=== PATIENT | female | born 1940 | race Caucasian/White ===

== ENCOUNTER 2021-06-14 14:58 | Outpatient (REF) | payer MEDICARE, SELFPAY ==
[2021-06-14 16:25] LABS: Hematocrit 34.6 % (37.0-47.0); Hemoglobin 11.7 g/dl (12.0-16.0); Mean Corpuscular HGB Conc 33.8 g/dl (31.0-35.0); Mean Corpuscular Hemoglobin 32.2 pg (27.0-33.0); Mean Corpuscular Volume 95.3 fL (80.0-98.0); Platelet Count 248 X10*3/uL (160-400); Red Blood Count 3.63 X10*6/uL (4.20-5.50); Red Cell Distribution Width 13.2 % (11.0-16.0); White Blood Count 12.2 X10*3/uL (4.8-10.8)
[2021-06-14 17:04] LABS: Alanine Aminotransferase 18 U/L (0-31); Alkaline Phosphatase 89 U/L (39-117); Anion Gap 12 (12-20); Aspartate Amino Transferase 25 U/L (5-31); Bilirubin Total 0.9 mg/dL (0.0-1.0); Blood Urea Nitrogen 29 mg/dL (9-16); Calcium 9.7 mg/dL (8.4-10.2); Carbon Dioxide 30 mmol/L (22-29); Chloride 105 mmol/L (96-108); Estimated Glomerular Filt Rate > 60; Glucose Random 99 mg/dL (60-115); Potassium 4.8 mmol/L (3.3-5.1); Sodium 142 mmol/L (135-145); Total Protein 7.3 g/dL (6.5-8.0)
[2021-06-14 17:07] LABS: B Type Natriuretic Peptide 210 pg/mL (<100)
[2021-06-14 17:30] LABS: TSH reflex Free T4 1.68 uIU/mL (0.32-4.0)
== END 2021-06-14 14:59 | disposition home or self-care (01) ==
LOC: HO.HMGCLDS 14:58
PROVIDERS: PCP Internal Medicine; Visit Provider Internal Medicine
DX: I10 Essential (primary) hypertension (principal); E78.5 Hyperlipidemia, unspecified; L85.3 Xerosis cutis
CPT/HCPCS: 36415; 80053; 83880; 84443; 85027

== ENCOUNTER 2023-03-23 14:42 | Outpatient (AMB) | payer MEDICARE, SELFPAY ==
--- NOTE | 2023-03-23 15:48 | MHC.OFFWIV ---
Intake Vital Signs 03/23/23 15:59 BP 142/80 H Blood Pressure Location Rt brachial Position Sitting Pulse 64 Pulse Source Pulse Oximeter Pulse Oximetry (%) 98 Oxygen Delivery Method Room Air Intake Visit Reasons: EST/ possible infection/eye issues Intake Note: Patient here for a couple issues, she has been seeing double and not clear, they get watery often, cant see when reading or writing and has been having difficulty walking because of it. she would also like to talk about ringing in ears and dental issues/crowns cracked. Patient Tobacco Use Status: Never used Tobacco Allergies Penicillins Allergy (Verified 03/24/23 05:03) Swelling Sulfa (Sulfonamide Antibiotics) Allergy (Verified 03/24/23 05:03) Swelling Medication List - Last Reconciled 03/24/23 by Austin Bassett MD aspirin 81 mg PO DAILY enalapril maleate 20 mg PO BID hydrochlorothiazide 25 mg PO DAILY hydrocortisone 2.5% 1 appl topical BID PRN metoprolol tartrate 25 mg PO TID HPI EST/ possible infection/eye issues HPI Details 82-year-old female presents to the office for a sick visit. She is walking with the assistance of a cane. Her niece brought her to the office but patient does not want her in the exam room. Patient does not recall when she saw her primary care physician last. She is not able to tell me the name of medication she is taking. Patient complains of poor vision, poor hearing. Then she starts talking about parasitic infections at her home. She is complaining about aches and pains in her body. Unable to tell me the exact nature of her visit today. [facility] Medical History (Updated 03/24/23 @ 05:10 by Austin Bassett MD) Dry skin HTN (hypertension) Hyperlipidemia Pacemaker Paroxysmal atrial fibrillation Solar lentiginosis Social History Patient Tobacco Use Status: Never used Tobacco Physical Exam Vital Signs: Last Vital Signs Pulse 64 03/23/23 15:59 BP 142/80 H 03/23/23 15:59 Pulse Ox 98 03/23/23 15:59 Oxygen Delivery Method Room Air 03/23/23 15:59 Const Other: Patient appears confused. She is alert answering some questions appropriately. Very sarcastic and not very forthright with her history. Patient sat across the room in a chair. I did not do a physical exam. Assessment & Plan Assessment & Plan (1) Poor vision: Code(s): H54.7 - Unspecified visual loss Plan: The interview and visit did not go well. A wanted the patient's niece to be in the room for me to get an understanding of what her medical issue was. The patient abruptly stood up and said she was done with me. She wanted to know her vital exam and her vision status. On a sticky note, I gave her her today's blood pressure, other white low details and the vision exam result. Patient was informed that her vision is floor. She walked out of the room independently and without assistance. Coding Level of Care Code Est Pt Level 3 (39945) Diagnoses Poor vision H54.7 CPT Codes Vision Screening - Vision Screenin - Vision Screening ([id number]) Vision Screening Right Eye: 0 Left Eye: 0 Bilateral: 20/70 Comments: patient stated while covering one eye at a time it would be blurred and while during vision screening with both eyes she was able to see 20/70 14210 - Vision Screening
[2023-03-23 15:59] VITALS: BP 142/80; PULSE 64; O2SAT 98
== END 2023-03-23 16:23 | disposition home or self-care (01) ==
PROVIDERS: PCP Internal Medicine; Visit Provider Internal Medicine
DX: H54.7 Unspecified visual loss (principal)
CPT/HCPCS: 99173; 99213

== ENCOUNTER 2023-05-01 12:26 | Outpatient (AMB) | payer MEDICARE, SELFPAY ==
--- NOTE | 2023-05-01 12:39 | A.OFFPC_ITS ---
Vital Signs 05/01/23 12:40 Height 5 ft 3.5 in Weight 126 lb BMI 22.0 BP 142/76 H Blood Pressure Location Lt brachial Position Sitting Pulse 60 Pulse Source Pulse Oximeter Pulse Oximetry (%) 96 Oxygen Delivery Method Room Air Intake Visit Reasons: headaches, nausea Intake Note: Pt is here today for a follow up visit. Allergies Penicillins Allergy (Verified 05/01/23 12:47) Swelling Sulfa (Sulfonamide Antibiotics) Allergy (Verified 05/01/23 12:47) Swelling Medication List - Last Reconciled 05/01/23 by Eleanor Lin MD aspirin 81 mg PO DAILY enalapril maleate 20 mg PO BID hydrochlorothiazide 25 mg PO DAILY hydrocortisone 2.5% 1 appl topical BID PRN metoprolol tartrate 25 mg PO TID Tobacco use date assessed: 05/01/23 Fall risk assessment: No Falls in past year Last assessed Fall Risk: 05/01/23 Dental Screening Dental Screen Date: 05/01/23 Did you have a dental visit in the last 12 months?: Yes Did you have a dental problem in the last 6 months where you did not have access to dental care?: No Was dental information given to patient?: Patient has dentist HPI headaches, nausea HPI Details Pt presents for follow-up of ER visit to [facility] for noncardiac chest pain. Patient lives alone and complains of difficulty walking and poor balance for a few months and would like to start PT. HTN and paroxysmal A fib, are stable on meds. Pt f/u with cardiology and [facility]. [facility] Medical History (Updated 05/01/23 @ 13:28 by Eleanor Lin MD) Paroxysmal atrial fibrillation Solar lentiginosis Dry skin Hyperlipidemia HTN (hypertension) Pacemaker Family History Father No problems noted. 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 1. Little interest or pleasure in doing things: not at all 2. Feeling down, depressed, or hopeless: not at all 3. Trouble falling or staying asleep, or sleeping too much: not at all 4. Feeling tired or having little energy: not at all 5. Poor appetite or overeating: not at all 6. Feeling bad about yourself - or that you are a failure or have let yourself or your family down: not at all 7. Trouble concentrating on things, such as reading the newspaper or watching television: not at all 8. Moving or speaking so slowly that other people could have noticed. Or the opposite - being so fidgety or restless that you have been moving around a lot more than usual: not at all 9. Thoughts that you would be better off or of hurting yourself in some way: not at all Total score: 0 Depression Screening Interpretation: Negative Source: Developed by Drs. Oscar Chen, Catrachita Villasenor, Nathanael Capellan and colleagues, with an educational radha from [employer]. Thrive Questionnaire Date Thrive assessed: 05/01/23 I am a: Patient What is your living situation today?: I have a steady place to live Within the past 12 months, did the food you bought not last and you didn't have the money to get more?: Never true Within the past 12 months, did you worry whether your food would run out before you got money to buy more?: Never true Do you have trouble paying for medicines?: No Do you have trouble getting transportation to medical appointments?: No Do you have trouble paying your heating and electricity bill?: No Do you have trouble taking care of your child, family member or friend?: No Do you have trouble with day-to-day activities such as bathing, preparing meals, shopping, managing finances, etc.?: No Are you currently unemployed and looking for a job?: No Are you interested in more education?: No Please select the resources that you would like help with: None Currently or been in a relationship where the following occur: no concerns reported AUDIT C Alcohol Use Questionnaire (AUDIT-C) 1. How often do you have a drink containing alcohol?: Never 3. How often do you have six or more drinks on one occasion?: Never Total Score: 0 ISHA-7 AMB Questionnaire ISHA-7 Date ISHA - 7 assessed: 05/01/23 Feeling nervous, anxious, or on edge: 0 = Not at all Not being able to stop or control worryin = Not at all Worrying too much about different things: 0 = Not at all Trouble relaxin = Not at all Being so restless that it is hard to sit still: 0 = Not at all Becoming easily annoyed or irritable: 0 = Not at all Feeling afraid as if something awful might happen: 0 = Not at all Total ISHA-7 score (0-4 normal; 5-9 mild; 10-14 moderate; 15-21 severe): 0 Source: Developed by Drs. Oscar Chen, Catrachita Villasenor, Nathanael Capellan and colleagues, with an educational radha from [employer]. Review of Systems Const All systems reviewed & are unremarkable except as noted in HPI and below Reports no additional complaints Eyes Reports no additional complaints ENT Reports no additional complaints Card Reports no additional complaints Resp Reports no additional complaints GI Reports no additional complaints Reports no additional complaints Physical exam (Primary Care) Vital Signs: Last Vital Signs Pulse 60 05/01/23 12:40 BP 142/76 H 05/01/23 12:40 Pulse Ox 96 05/01/23 12:40 Oxygen Delivery Method Room Air 05/01/23 12:40 BMI result Body Mass Index 22.0 Tobacco/Smoking Status: Tobacco use Status Tobacco use date assessed 05/01/23 05/01/23 12:54 Patient Tobacco Use Status Never used Tobacco 05/01/23 12:54 e-Cigarette/Vaping Use Never Used 05/01/23 12:54 PHQ-9: PHQ-9 Score PHQ-9: Total score 0 05/01/23 12:54 Depression Screening Interpretation: Negative Thrive Assessment: Date of Thrive Assessment Date Thrive assessed 05/01/23 05/01/23 12:54 Currently or been in a relationship where the following occur: no concerns reported Const General: no acute distress Orientation/consciousness: patient oriented x3 HENMT Face and sinus: Yes normal facial exam Mouth: Normal oral and palatal mucosa present Neck Neck: Yes supple Resp Effort & Inspection: normal respiratory effort Auscultation: clear to auscultation bilaterally Cardio Rhythm: regular rhythm Heart sounds: S1 normal heart sound present and S2 normal heart sound present GI Inspection: Yes normal to inspection Palpation (GI): Soft to palpation Neuro General: patient oriented x3 Cranial nerves: Yes CN's II-XII intact bilaterally Gait exam (Neuro): Staggering gait present Motor exam (neuro): 5/5 motor strength present throughout and Pronator motor function not present Romberg Test: Negative Assessment and Plan Assessment & Plan (1) Balance problem: Code(s): R26.89 - Other abnormalities of gait and mobility Plan: Referred to physical therapy (2) HTN (hypertension): Code(s): I10 - Essential (primary) hypertension Plan: Continue current medications (3) Paroxysmal atrial fibrillation: Comment: f/u Dr. Brody Naranjo, SSS, s/p pacemaker Code(s): I48.0 - Paroxysmal atrial fibrillation Plan: Follow-up with Cardiology Orders: Orders PT Evaluation and Treatment Today R26.89 - Other abnormalities of gait and mobility Coding Level of Care Code Est Pt Level 4 (56862) Diagnoses Balance problem R26.89 HTN (hypertension) I10 Paroxysmal atrial fibrillation I48.0
[2023-05-01 12:40] VITALS: BP 142/76; PULSE 60; O2SAT 96; BMI 22.0
== END 2023-05-01 13:29 | disposition home or self-care (01) ==
PROVIDERS: PCP Internal Medicine; Visit Provider Internal Medicine
DX: R26.89 Other abnormalities of gait and mobility (principal); I10 Essential (primary) hypertension; I48.0 Paroxysmal atrial fibrillation
CPT/HCPCS: 99214

== ENCOUNTER 2023-05-21 15:49 | Inpatient (IN) | payer MEDICARE, SELFPAY ==
--- NOTE | 2023-05-21 | ECG_ITS ---
Test Reason : GENERAL MEDICAL Blood Pressure : / mmHG Vent. Rate : 062 BPM Atrial Rate : 062 BPM P-R Int : 178 ms QRS Dur : 182 ms QT Int : 498 ms P-R-T Axes : 096 -31 080 degrees QTc Int : 505 ms Atrial-sensed ventricular-paced rhythm Abnormal ECG No previous ECGs available Referred By: Generic ED Physician Electronically Signed By:MICHAELA RUBALCAVA MD
--- NOTE | ~2023-05-21 | CT_ITS ---
EXAMINATION: CT HEAD WITHOUT CONTRAST CLINICAL INFORMATION: Hallucinations. COMPARISON: None available. TECHNIQUE: Contiguous axial imaging was performed from the skull base to vertex without intravenous administration of contrast. This CT examination was performed using dose optimization techniques as appropriate, variously including the following: *Automated exposure control *Adjustment of mA and/or kV according to patient size (this includes techniques or standardized protocols for targeted exams where dose is matched to indication/reason for exam; i.e. extremities or head) *Use of iterative reconstruction technique DLP: 652 mGy-cm FINDINGS: There is no acute intra-axial, extra-axial bleed, masses or midline shift. There is no acute infarction in evolution. There is no edema. The colon to white matter differentiation is maintained normal. The lateral ventricles are symmetrical in size and configuration without enlargement. Bone windows reveal no calvarial abnormality. There is no scalp soft tissue abnormality. CT/CT head/brain wo IV con IMPRESSION: No acute intracranial process seen.
[2023-05-21 16:48] VITALS: BP 195/68; PULSE 64; RESP 16; TEMP 36.6; O2SAT 98; BMI 22.1
--- NOTE | 2023-05-21 17:02 | ED_ITS ---
HPI - General Adult General Chief complaint: Psychiatric Symptoms Stated complaint: sent from pcp Time Seen by Provider: 05/21/23 17:25 Source: patient and old records reviewed Mode of arrival: ambulatory Limitations: no limitations History of Present Illness HPI narrative: 82 yo female with PMH of PAF, HTN, HLD, PPM, balance problems last CT scan was normal back in march 2023 for balance issues, here with c/o hallucinations that are auditory and visual x 3+ months worse though this past month had a normal head CT was told by someone it was dementia but no formal diagnosis and she really does not have memory issues. She now has more aggressive hallucinations and they are more violent. She was told to go outside by one today and she did. This scared her niece Millie who is very involved. They want a psych evaluation. She is not on blood thinners or aspirin. complaint: hallucinations Onset (ago): month(s) (3) Severity: moderate Relieving factors: none Exacerbating factors: other (definitely worsened by stress or fear events or being alone ) Associated symptoms: denies other symptoms Treatments prior to arrival: none Related Data Home Medications Medication Instructions Recorded Confirmed aspirin 81 mg tablet,delayed 81 mg PO DAILY 08/27/20 05/01/23 release enalapril maleate 10 mg tablet 20 mg PO BID 08/27/20 05/01/23 hydrochlorothiazide 25 mg tablet 25 mg PO DAILY 08/27/20 05/01/23 metoprolol tartrate 25 mg tablet 25 mg PO TID 08/27/20 05/01/23 Previous Rx's Medication Instructions Recorded hydrocortisone 2.5 % topical cream 1 appl topical BID PRN skin 06/14/21 irritation #30 grams Allergies Allergy/AdvReac Type Severity Reaction Status Date / Time Penicillins Allergy Swelling Verified 05/21/23 16:51 Sulfa (Sulfonamide Allergy Swelling Verified 05/21/23 16:51 Antibiotics) Review of Systems 2 Review of Systems: Constitutional : No Fever, No Chills ENT/Mouth : No Ear Pain, No Nasal Congestion, No sore throat Eyes: No Eye Pain, No Swelling, No Redness Cardiovascular : No Chest Pain, No SOB Respiratory : No Cough, No Sputum, No Dyspnea Gastrointestinal : No Nausea, No Vomiting, No Diarrhea, No Hematochezia, No Melena Genitourinary : No Dysuria, No Urinary Frequency, No Hematuria Musculoskeletal : No Myalgias Skin : No Skin Lesions, No rash Neuro : No Weakness, No Numbness, No Paresthesias, No Dizziness, No Headache Psych : positive Anxiety, positive Depression, positive AH/VH, denies SI to me, denies HI to me Heme/Lymph: No Lymphadenopathy Endocrine : No Polyuria, No Polydipsia All other systems reviewed and are negative [facility] Past Medical History Attestation statement: The following information was validated with the patient. Source: old records reviewed Medical History Paroxysmal atrial fibrillation Solar lentiginosis Dry skin Hyperlipidemia HTN (hypertension) Pacemaker Family History Family History Father No problems noted. 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 Housing: Apartment Patient Tobacco Use Status: Never used Tobacco Smoked in Last 30 Days: No e-Cigarette/Vaping Use: Never Used Use of substances other than those prescribed or required for medical reasons: No Advance Directives: No Advance Directives Information Provided: Yes Current occupational status: retired Cognitive needs: No Hearing needs: No Vision needs: No Physical Exam ED Vital Signs: Vital Signs - 24 hr 05/21/23 16:48 05/21/23 18:05 05/21/23 20:15 Temperature 97.9 F 98.2 F Pulse Rate 64 62 65 Respiratory Rate 16 18 17 Blood Pressure 195/68 H 179/69 H 180/66 H Pulse Oximetry 98 99 98 Oxygen Delivery Method Room Air Room Air Room Air BMI result Body Mass Index 22.1 Appearance: Alert. Oriented X3. No acute distress. Eyes: Pupils equal, round and reactive to light. ENT: Pharynx normal. Neck: Normal inspection. Neck supple. CVS: Normal heart rate and rhythm. Pulses normal. Respiratory: No respiratory distress. Breath sounds normal. Abdomen: Soft and nontender. Skin: Skin warm and dry. Normal skin color. Normal skin turgor. Extremities: No lower extremity edema. No calf ttp Neuro: Oriented X 3. No motor deficit. No sensory deficit. CN2-12 intact Course Course Course Narrative: RME- 82-year-old female presents for evaluation of hallucinations have been worsening over the last few months. Per family they have been getting worse today with command hallucinations that are new. Family can no longer cope at home. Plan for care to evaluation Reevaluation(s) Reevaluation #1: Physician observation started at 956pm. Patient placed in physician observation because the patient needed more time for CARE team to assess the need for psych admission. At the time observation was started the patient's vitals were stable, patient is alert and oriented Neuro: nonfocal, CV RRR, Lungs clear Medical Decision Making Medical Decision Making MDM Narrative: 82 yo female with PMH of PAF, HTN, HLD, PPM, balance problems here with c/o worsening AH/VH now with command hallucinations at this time given age will need labs, UA, EKG and CT head to assess for missed stroke given symptoms x 3 months and worsening x 1 month. If workup negative will refer to CARE team given concerns. She denies med changes or ingestions. Differential Diagnosis Differential Diagnoses: The differential diagnosis associated with the presentation includes stroke, UTI, dementia with psychosis, psychosis Admission/Observation Consideration of admission/observation: Escalation of care including admission/observation considered observe until seen by our CARE team Consult Healthcare Provider Management of the patient was discussed with: Behavioral Health Provider Lab Data [facility] Lab Attestation statement: I reviewed the patient's lab results. 05/21/23 18:14 05/21/23 18:14 Labs: Lab Results 05/21/23 05/21/23 05/21/23 Range/Units 18:14 20:11 20:34 WBC 10.3 (4.8-10.8) X10*3/uL RBC 3.48 L (4.20-5.50) X10*6/uL Hgb 11.1 L (12.0-16.0) g/dl Hct 32.8 L (37.0-47.0) % MCV 94.3 (80.0-98.0) fL MCH 31.9 (27.0-33.0) pg MCHC 33.8 (31.0-35.0) g/dl RDW 13.6 (11.0-16.0) % Plt Count 237 (160-400) X10*3/uL MPV 10.8 (9.4-12.3) fL Immature Gran % (Auto) 0.4 (0.0-0.4) % Neut % (Auto) 71.1 (45-73) % Lymph % (Auto) 16.9 L (20-40) % [place] % (Auto) 9.0 (2-11) % Eos % (Auto) 2.2 (0-4) % Baso % (Auto) 0.4 (0-2) % Lymph # (Auto) 1.8 (1.2-4.9) X10*3/uL [place] # (Auto) 0.9 (0.1-1.2) X10*3/uL Eos # (Auto) 0.2 (0.0-0.4) X10*3/uL Baso # (Auto) 0.0 (0.0-0.2) X10*3/uL Abs Immat Gran (auto) 0.04 H (0.00-0.03) X10*3/uL Absolute Neuts (auto) 7.3 (2.0-8.3) x10*3/uL Absolute Nucleated RBC 0.000 (0.0-0.012) X10*3/uL Nucleated RBC % (auto) 0.0 (0.0-0.2) /100WBC Sodium 143 (135-145) mmol/L Potassium 4.4 (3.3-5.1) mmol/L Chloride 108 (96-108) mmol/L Carbon Dioxide 25 (22-29) mmol/L Anion Gap 14 (12-20) BUN 27 H (9-16) mg/dL Creatinine 0.77 (0.5-1.4) mg/dL Estim Creat Clear Calc 45.0 Estimated GFR > 60 Random Glucose 100 (60-115) mg/dL Calcium 10.0 (8.4-10.2) mg/dL Magnesium 2.0 (1.6-2.6) mg/dL Total Bilirubin 0.6 (0.0-1.0) mg/dL AST 20 (5-31) U/L ALT 11 (0-31) U/L Alkaline Phosphatase 76 (39-117) U/L Total Protein 7.2 (6.5-8.0) g/dL Albumin 3.8 (3.5-5.0) g/dL TSH 1.29 (0.32-4.0) uIU/mL Urine Color Yellow Urine Appearance Clear Urine pH 6.5 (5.0-9.0) Ur Specific [place] 1.020 (1.005-1.025) Urine Protein 100 (2+) H (Neg-Trace) mg/dL Urine Glucose (UA) Negative (Negative) mg/dL Urine Ketones Negative (Negative) mg/dL Urine Blood Negative (Negative) Urine Nitrite Negative (Negative) Ur Leukocyte Esterase Small (1+) H (Negative) Urine RBC 0-2 (0-2) /HPF Urine WBC 6-10 H (0-5) /HPF Ur Squamous Epith Cells 0-2 (0-2) /HPF Urine Bacteria None Seen (None Seen) Hyaline Casts 0-2 (0-2) /LPF Salicylates < 5.0 L (15-30) mg/dL Urine Opiates Screen Not Detected (Not Detect) Urine Fentanyl Screen Not Detected (Not Detect) Acetaminophen < 17 (<30) mcg/mL Ur Barbiturates Screen Not Detected (Not Detect) Ur Phencyclidine Scrn Not Detected (Not Detect) Ur Amphetamines Screen Not Detected (Not Detect) U Benzodiazepines Scrn Not Detected (Not Detect) Urine Cocaine Screen Not Detected (Not Detect) U Marijuana (THC) Screen Not Detected (Not Detect) Ethyl Alcohol < 10 mg/dL COVID-19 ([place]) Negative (Negative) COVID-19 Clin Com See Note Independent Interpretation I performed an independent interpretation of an: EKG and CT Scan Interpretation: Rate: 62 Rhythm: atrial sensed paced [place]: left Normal P waves. Normal DA. wide QRS complex. ST T wave : tall T waves anterior leads, no ERIKA, inverted t wave aVL qTC: prolonged slightly prior studies: no priors but no acute ischemia The study has been interpreted contemporaneously by me. . Radiology Impression Discussion of test interpretation with radiology: I have reviewed the radiologist's reading. Independent Historian Clinical information obtained from an independent historian. History obtained from or confirmed by: Other (niece) External Record Review External record reviewed: Inpatient record, Office record and Prior outpatient radiology Discharge Plan Discharge Clinical Impression: Auditory hallucinations Patient Disposition: Still a Patient Prescriptions: No Action metoprolol tartrate 25 mg tablet 25 mg PO TID enalapril maleate 10 mg tablet 20 mg PO BID hydrochlorothiazide 25 mg tablet 25 mg PO DAILY aspirin 81 mg tablet,delayed release (DR/EC) 81 mg PO DAILY hydrocortisone 2.5 % cream 1 appl topical BID PRN (Reason: skin irritation) Qty: 30 2RF Interventions: [place]-Suicide Risk Severity Scale Last Done: 05/21/23 18:46
[2023-05-21 18:05] VITALS: BP 179/69; PULSE 62; RESP 18; TEMP 36.8; O2SAT 99
[2023-05-21 18:19] LABS: MANUAL DIFF FLAG NO
[2023-05-21 18:25] LABS: Basophils Percent Auto 0.4 % (0-2); Eosinophils Absolute Auto 0.2 X10*3/uL (0.0-0.4); Eosinophils Percent Auto 2.2 % (0-4); Hematocrit 32.8 % (37.0-47.0); Hemoglobin 11.1 g/dl (12.0-16.0); Imm Gran Abs Auto 0.04 X10*3/uL (0.00-0.03); Imm Gran Pct Auto 0.4 % (0.0-0.4); Lymphocytes Absolute Auto 1.8 X10*3/uL (1.2-4.9); Lymphocytes Percent Auto 16.9 % (20-40); Mean Corpuscular HGB Conc 33.8 g/dl (31.0-35.0); Mean Corpuscular Hemoglobin 31.9 pg (27.0-33.0); Mean Corpuscular Volume 94.3 fL (80.0-98.0); Mean Platelet Volume 10.8 fL (9.4-12.3); Monocytes Absolute Auto 0.9 X10*3/uL (0.1-1.2); Neutrophils Absolute Auto 7.3 x10*3/uL (2.0-8.3); Neutrophils Percent Auto 71.1 % (45-73); Platelet Count 237 X10*3/uL (160-400); Red Blood Count 3.48 X10*6/uL (4.20-5.50); Red Cell Distribution Width 13.6 % (11.0-16.0); White Blood Count 10.3 X10*3/uL (4.8-10.8)
[2023-05-21 18:34] LABS: Acetaminophen LAB < 17 mcg/mL (<30); Alanine Aminotransferase 11 U/L (0-31); Albumin Level 3.8 g/dL (3.5-5.0); Alkaline Phosphatase 76 U/L (39-117); Anion Gap 14 (12-20); Aspartate Amino Transferase 20 U/L (5-31); Bilirubin Total 0.6 mg/dL (0.0-1.0); Blood Urea Nitrogen 27 mg/dL (9-16); Carbon Dioxide 25 mmol/L (22-29); Chloride 108 mmol/L (96-108); Estimated Glomerular Filt Rate > 60; Ethanol < 10 mg/dL; Glucose Random 100 mg/dL (60-115); Potassium 4.4 mmol/L (3.3-5.1); Sodium 143 mmol/L (135-145); Total Protein 7.2 g/dL (6.5-8.0)
--- NOTE | 2023-05-21 18:50 | PC.NURSE ---
pt alert and oriented, skin pwd,respirations even and labored, denies pain. pt is experiencing sever auditory hallucinations of multiple people saying very threatening things at the pt reports- pt thinks they are trying to clone her, tell her to go into the river, told the pt to leave her house yesterday and she actual left her house- pt is feeling homicide towards these voices but denies si. pt states that this has never happened to her before
[2023-05-21 18:55] LABS: TSH reflex Free T4 1.29 uIU/mL (0.32-4.0)
[2023-05-21 19:10] LABS: Salicylate < 5.0 mg/dL (15-30)
[2023-05-21 20:15] VITALS: BP 180/66; PULSE 65; RESP 17; O2SAT 98
[2023-05-21 20:21] LABS: Appearance Urine Clear; Color Urine Yellow; Glucose Urine UA Negative (Negative); Leukocyte Esterase Urine Small (1+) (Negative); Nitrite Urine Negative (Negative); PH 6.5 (5.0-9.0); UMIC TRIGGER UACC YES; Urine Blood Negative (Negative); Urine Ketones Negative (Negative); Urine Protein 100 (2+) mg/dL (Neg-Trace)
[2023-05-21 20:27] LABS: Amphetamine Screen Urine Not Detected (Not Detect); Barbiturates, Urine Not Detected (Not Detect); Benzodiazepines Screen Urine Not Detected (Not Detect); Cannabinoid Screen Urine Not Detected (Not Detect); Cocaine Screen Urine Not Detected (Not Detect); Fentanyl, urine Not Detected (Not Detect); Opiate Screen Urine Not Detected (Not Detect); Phencyclidine Screen Urine Not Detected (Not Detect)
[2023-05-21 20:43] LABS: Bacteria Urine None Seen (None Seen); Hyaline Casts Urine 0-2 /LPF (0-2); RBC Urine 0-2 /HPF (0-2); Squamous Epithelial Cell Urine 0-2 /HPF (0-2); UACC Culture Trigger YES
[2023-05-21 20:56] LABS: COVID-19 Test Negative (Negative); IDNOW Serial# 08D9AD1C
--- NOTE | 2023-05-21 22:40 | PHA.MEDREC ---
Pharmacy Consult ? Medication Reconciliation Pharmacy has completed the medication reconciliation. Reviewed med rec done by nursing
[2023-05-21] MEDS: Metoprolol Tartrate 25 MG TABLET PO (22:46)
[2023-05-21] MEDS: Enalapril Maleate 10 MG TABLET 20 MG PO (22:50)
[2023-05-22] MEDS: OLANZapine ODT 10 MG TAB.RAPDIS 2.5 MG TRANSLINGU (00:48)
--- NOTE | 2023-05-22 05:36 | PC.NURSE ---
Patient slept through the night, no distress observed/reported, behavior non concerning, ambulation independent with walker but patient is high fall risk due to poor vision, engaged well with care team, disposition is section 12 inpatient bed search, olanzapine 2.5 mg administered for voices with + effect, labs completed/resulted, medication compliant, will continue to monitor.
[2023-05-22 06:07] VITALS: RESP 16
--- NOTE | 2023-05-22 07:36 | PC.NURSE ---
patient appears to remain asleep at present respirations are even and unlabored patient appears in no distress
[2023-05-22 09:57] VITALS: BP 174/59; PULSE 62; RESP 16; TEMP 36.7; O2SAT 99
[2023-05-22] MEDS: Enalapril Maleate 10 MG TABLET 20 MG PO ×2 (10:09→20:34)
[2023-05-22] MEDS: hydroCHLOROthiazide 25 MG TABLET PO (10:09)
[2023-05-22] MEDS: Metoprolol Tartrate 25 MG TABLET PO ×3 (10:09→20:35)
[2023-05-22 16:48] VITALS: BP 189/74; PULSE 60; RESP 16; TEMP 36.1; O2SAT 97; BMI 21.3
--- NOTE | 2023-05-22 18:03 | PC.ADMIT ---
Jessica was admitted to at 14:50 from [facility] pod on CV for the treatment of unspecified psychosis. The precipitant of admission includes increased auditory and visual hallucinations and paranoia. Per crisis, at home patient has been discarding food that she believes to be poisoned and has had poor intake because of this. She reported having episodes of disconnect . She is alert and oriented x4, but has poor insight into situation/illness. She reports poor sleep. Utox was negative for all substances and BAL <10. She reports having a pacemaker and HTN. Sharps check was completed by staff. She denies suicidal and homicidal thoughts and intent. She was placed on 5 minute checks for safety.
[2023-05-22 20:00] VITALS: BP 176/75; PULSE 68; RESP 16; TEMP 36.4; O2SAT 99
[2023-05-23 10:20] LABS: Alanine Aminotransferase 13 U/L (0-31); Albumin Level 3.8 g/dL (3.5-5.0); Alkaline Phosphatase 81 U/L (39-117); Anion Gap 17 (12-20); Aspartate Amino Transferase 22 U/L (5-31); Bilirubin Total 0.9 mg/dL (0.0-1.0); Blood Urea Nitrogen 17 mg/dL (9-16); Calcium 9.7 mg/dL (8.4-10.2); Carbon Dioxide 25 mmol/L (22-29); Chloride 104 mmol/L (96-108); Cholesterol 227 mg/dL (<200); Creatinine Clr Calc Pharmacy 46.2; Estimated Glomerular Filt Rate > 60; Glucose Fasting 92 mg/dL (60-99); HDL Cholesterol 60 mg/dL (>40); LDL Cholesterol Calculated 142 mg/dL (<100); Potassium 3.3 mmol/L (3.3-5.1); Sodium 143 mmol/L (135-145); Total Protein 7.5 g/dL (6.5-8.0); Triglycerides 128 mg/dL (<150)
[2023-05-23 10:34] VITALS: BP 149/64; PULSE 70; RESP 16; TEMP 36.5; O2SAT 100
[2023-05-23] MEDS: Metoprolol Tartrate 25 MG TABLET PO ×3 (10:37→22:18)
[2023-05-23] MEDS: Enalapril Maleate 10 MG TABLET 20 MG PO ×2 (10:37→22:18)
[2023-05-23] MEDS: hydroCHLOROthiazide 25 MG TABLET PO (10:38)
--- NOTE | 2023-05-23 11:25 | P.HPPS_ITS ---
HPI Date of Service: 05/23/23 Chief Complaint: Psychosis Sources of Information: patient interviewed, chart reviewed and crisis/core team assessment reviewed HPI Subjective Notes: Conditional Voluntary Narrative: 82-year-old female admitted with support of her niece due to concerns of increasing auditory and visual hallucinations in recent months that have turned into command for example telling patient to walk out to the dumpsters, that her food is being poisoned, that she is being turned into a hologram. No management issues since being on the unit. With telegraphic typewriter repairer was pleasant and engaged. Articulate. No overt cognitive issues noted. Noted that over the last year so she has been hallucinating and that over the last 6 months conversations have been in the 3rd person . denies being depressed. Denies SI or HI. Is unsure around medications but open to same. We discussed risks and benefits of Risperdal. Prefers that this does not get ordered now and she will discuss this with her niece and review same with telegraphic typewriter repairer tomorrow. Patient was very clear she preferred the telegraphic typewriter repairer did not speak with niece today. We also discussed legal status and three-day notice should the patient wish to pursue same. Past Psychiatric History: Hallucinations for at least 1 year. No inpatient episodes. No history of suicide attempts. Never on medications. Medical Evaluation Reviewed: Yes [facility] Medical History Paroxysmal atrial fibrillation Solar lentiginosis Dry skin Hyperlipidemia HTN (hypertension) Pacemaker Social History: Lives alone. Enjoys in use and writing. 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 Single. No children. No substance issues. Niece very supportive. Substance History: Denied Trauma History: denied Diagnostics Vital Signs (24Hr): Vital Signs - 24 hr 05/22/23 16:48 05/22/23 20:00 05/23/23 10:34 Temperature 97.0 F 97.6 F 97.7 F Pulse Rate 60 68 70 Respiratory Rate 16 16 16 Blood Pressure 189/74 H 176/75 H 149/64 H Pulse Oximetry 97 99 100 Oxygen Delivery Method Room Air Room Air Room Air BMI result Body Mass Index 21.3 Labs 05/21/23 18:14 05/23/23 09:40 Labs: Laboratory Results - last 48 hr 05/21/23 05/21/23 05/21/23 18:14 20:11 20:34 WBC 10.3 RBC 3.48 L Hgb 11.1 L Hct 32.8 L MCV 94.3 MCH 31.9 MCHC 33.8 RDW 13.6 Plt Count 237 MPV 10.8 Immature Gran % (Auto) 0.4 Neut % (Auto) 71.1 Lymph % (Auto) 16.9 L Cobb % (Auto) 9.0 Eos % (Auto) 2.2 Baso % (Auto) 0.4 Lymph # (Auto) 1.8 Cobb # (Auto) 0.9 Eos # (Auto) 0.2 Baso # (Auto) 0.0 Abs Immat Gran (auto) 0.04 H Absolute Neuts (auto) 7.3 Absolute Nucleated RBC 0.000 Nucleated RBC % (auto) 0.0 Sodium 143 Potassium 4.4 Chloride 108 Carbon Dioxide 25 Anion Gap 14 BUN 27 H Creatinine 0.77 Estim Creat Clear Calc 45.0 Estimated GFR > 60 Random Glucose 100 Fasting Glucose Calcium 10.0 Magnesium 2.0 Total Bilirubin 0.6 AST 20 ALT 11 Alkaline Phosphatase 76 Total Protein 7.2 Albumin 3.8 Triglycerides Cholesterol LDL Cholesterol, Calc HDL Cholesterol TSH 1.29 Urine Color Yellow Urine Appearance Clear Urine pH 6.5 Ur Specific Allison 1.020 Urine Protein 100 (2+) H Urine Glucose (UA) Negative Urine Ketones Negative Urine Blood Negative Urine Nitrite Negative Ur Leukocyte Esterase Small (1+) H Urine RBC 0-2 Urine WBC 6-10 H Ur Squamous Epith Cells 0-2 Urine Bacteria None Seen Hyaline Casts 0-2 Salicylates < 5.0 L Urine Opiates Screen Not Detected Urine Fentanyl Screen Not Detected Acetaminophen < 17 Ur Barbiturates Screen Not Detected Ur Phencyclidine Scrn Not Detected Ur Amphetamines Screen Not Detected U Benzodiazepines Scrn Not Detected Urine Cocaine Screen Not Detected U Marijuana (THC) Screen Not Detected Ethyl Alcohol < 10 COVID-19 ([facility]) Negative COVID-19 Clin Com See Note 05/23/23 09:40 WBC RBC Hgb Hct MCV MCH MCHC RDW Plt Count MPV Immature Gran % (Auto) Neut % (Auto) Lymph % (Auto) Cobb % (Auto) Eos % (Auto) Baso % (Auto) Lymph # (Auto) Cobb # (Auto) Eos # (Auto) Baso # (Auto) Abs Immat Gran (auto) Absolute Neuts (auto) Absolute Nucleated RBC Nucleated RBC % (auto) Sodium 143 Potassium 3.3 D Chloride 104 Carbon Dioxide 25 Anion Gap 17 BUN 17 H Creatinine 0.75 Estim Creat Clear Calc 46.2 Estimated GFR > 60 Random Glucose Fasting Glucose 92 Calcium 9.7 Magnesium Total Bilirubin 0.9 AST 22 ALT 13 Alkaline Phosphatase 81 Total Protein 7.5 Albumin 3.8 Triglycerides 128 Cholesterol 227 H LDL Cholesterol, Calc 142 H HDL Cholesterol 60 TSH Urine Color Urine Appearance Urine pH Ur Specific Allison Urine Protein Urine Glucose (UA) Urine Ketones Urine Blood Urine Nitrite Ur Leukocyte Esterase Urine RBC Urine WBC Ur Squamous Epith Cells Urine Bacteria Hyaline Casts Salicylates Urine Opiates Screen Urine Fentanyl Screen Acetaminophen Ur Barbiturates Screen Ur Phencyclidine Scrn Ur Amphetamines Screen U Benzodiazepines Scrn Urine Cocaine Screen U Marijuana (THC) Screen Ethyl Alcohol COVID-19 ([facility]) COVID-19 Clin Com Imaging Radiology Impressions: ITS Impressions Head CT 05/21/23 20:22 IMPRESSION: No acute intracranial process seen. Meds/Allergies Meds Home Medications Medication Instructions Recorded Confirmed Type enalapril maleate 10 mg tablet 20 mg PO BID 08/27/20 05/21/23 History hydrochlorothiazide 25 mg tablet 25 mg PO DAILY 08/27/20 05/21/23 History metoprolol tartrate 25 mg tablet 25 mg PO TID 08/27/20 05/21/23 History Allergies Allergies Allergy/AdvReac Type Severity Reaction Status Date / Time Penicillins Allergy Swelling Verified 05/21/23 16:51 Sulfa (Sulfonamide Allergy Swelling Verified 05/21/23 16:51 Antibiotics) Mental Status Exam Mental Status Exam Narrative: pleasant. Engaged. Fairly presented. Organized and articulate. Euthymic. No SI. No HI. Does endorse hallucinations. Feels safe. Insight and judgment fair Assessment & Plan Assessment & Plan (1) Psychosis: Status: Acute Code(s): F29 - Unspecified psychosis not due to a substance or known physiological condition Plan presents with well-established history of hallucinations for at least 1 year, that have become bothersome in recent weeks to months. Has not been on treatment. No obvious medical issues noted. Discussed risks and benefits of Risperdal and patient will consider same- will review with telegraphic typewriter repairer again 05/24 and was clear she did not want this ordered before than were discussed with her niece either, as she wanted to do that herself Patient educated on: diagnosis and medication risk/benefits Reason for continued inpatient stay Substantial Risk for: inability to function Statement Statement: I have reviewed the history and physical and performed a pertinent examination on my patient. No changes have occurred unless specified. If the History and Physical was not performed prior to admission, the Hospitalist's service will be consulted for completing the admission physical. Time Spent With Patient Time: Total time managing care of this patient today ____ minutes.
[2023-05-23 15:24] VITALS: BP 168/79; PULSE 63
[2023-05-23 21:00] VITALS: BP 184/71; PULSE 57; RESP 16; TEMP 36.4; O2SAT 98
[2023-05-24 08:53] VITALS: BP 183/78; PULSE 60; RESP 17; TEMP 36.3; O2SAT 98
[2023-05-24] MEDS: Metoprolol Tartrate 25 MG TABLET PO ×3 (08:58→20:43)
[2023-05-24] MEDS: hydroCHLOROthiazide 25 MG TABLET PO (08:58)
[2023-05-24] MEDS: Enalapril Maleate 10 MG TABLET 20 MG PO ×2 (09:04→20:44)
--- NOTE | 2023-05-24 09:37 | HO.PSYCHPN ---
Subjective Subjective Date of Service: 05/24/23 Reason For Visit: Psychosis Subjective Notes: Conditional Voluntary Medical Problems Affecting Mental Status: No Interim History: met with patient. Discussed with Nursing. Has been paranoid since yesterday. Suspicious on BP medications. Insisting on eating food in her room and did not eat breakfast or lunch yesterday in the context of same and also breakfast today. Grey Iron Molder did communicate with patient that securities underwriter's understanding of expectations on this unit were not accurate i.e. expectation is that all meals are eaten outside of the bedroom. Patient showed understanding of same. She is agreeable to trialing Risperdal 0.5 mg at bedtime. Reports he will communicate this to her niece herself i.e. still prefers securities underwriter does not speak with niece. Insinuates that there are things going on with unit that should not be whisper, lies and implied force but would not elaborate. Medication Compliance: Intermittent Side effects from medications: No Attending Groups: No Review of Systems Acute medical concerns: No Review of Systems Review of Systems Yes all other systems are reviewed and are negative Mental Status Exam Mental Status Exam Narrative: pleasant. Engaged. Fairly presented. Organized and articulate. Euthymic. No SI. No HI. Paranoid delusions and hallucinations. Feels somewhat safe. Insight and judgment fair Diagnostics Vital Signs (24Hr): Vital Signs - 24 hr 05/23/23 10:34 05/23/23 15:24 05/23/23 21:00 Temperature 97.7 F 97.6 F Pulse Rate 70 63 57 Respiratory Rate 16 16 Blood Pressure 149/64 H 168/79 H 184/71 H Pulse Oximetry 100 98 Oxygen Delivery Method Room Air Room Air 05/24/23 08:53 Temperature 97.4 F Pulse Rate 60 Respiratory Rate 17 Blood Pressure 183/78 H Pulse Oximetry 98 Oxygen Delivery Method Room Air BMI result Body Mass Index 21.3 Labs 05/21/23 18:14 05/23/23 09:40 Labs: Laboratory Results - last 48 hr 05/23/23 09:40 Sodium 143 Potassium 3.3 D Chloride 104 Carbon Dioxide 25 Anion Gap 17 BUN 17 H Creatinine 0.75 Estim Creat Clear Calc 46.2 Estimated GFR > 60 Fasting Glucose 92 Calcium 9.7 Total Bilirubin 0.9 AST 22 ALT 13 Alkaline Phosphatase 81 Total Protein 7.5 Albumin 3.8 Triglycerides 128 Cholesterol 227 H LDL Cholesterol, Calc 142 H HDL Cholesterol 60 Imaging Radiology Impressions: ITS Impressions Head CT 05/21/23 20:22 IMPRESSION: No acute intracranial process seen. Medications Medications Current Medications Acetaminophen (Acetaminophen 325 Mg Tablet) 650 mg PO Q6H PRN PRN Reason: Headache/Pain Mild Scale (1-3) Al Hydroxide/Mg Hydroxide (Magnesium Hydrox/Alum Hydrox 30 Ml Oral.Susp) 30 ml PO Q6H PRN PRN Reason: Heartburn/Nausea Enalapril Maleate (Enalapril Maleate 10 Mg Tablet) 20 mg PO BID [facility]; Protocol Last Admin: 05/24/23 09:04 Dose: 10 mg Hydrochlorothiazide (Hydrochlorothiazide 25 Mg Tablet) 25 mg PO DAILY JM; Protocol Last Admin: 05/24/23 08:58 Dose: 25 mg Hydroxyzine HCl (Hydroxyzine Hcl 25 Mg Tablet) 25 mg PO Q6H PRN PRN Reason: Anxiety Magnesium Hydroxide (Milk Of Magnesia 30 Ml Oral.Susp) 30 ml PO DAILY PRN PRN Reason: Constipation Metoprolol Tartrate (Metoprolol Tartrate 25 Mg Tablet) 25 mg PO TID JM; Protocol Last Admin: 05/24/23 08:58 Dose: 25 mg Trazodone HCl (Trazodone Hcl 50 Mg Tablet) 50 mg PO BEDTIME MRX1 PRN PRN Reason: Insomnia Allergies Allergies Allergy/AdvReac Type Severity Reaction Status Date / Time Penicillins Allergy Swelling Verified 05/21/23 16:51 Sulfa (Sulfonamide Allergy Swelling Verified 05/21/23 16:51 Antibiotics) Assessment & Plan Assessment & Plan (1) Psychosis: Status: Acute Code(s): F29 - Unspecified psychosis not due to a substance or known physiological condition Plan presents with well-established history of hallucinations for at least 1 year, that have become bothersome in recent weeks to months. Has not been on treatment. No obvious medical issues noted. Discussed risks and benefits of Risperdal and patient will consider same- will review with securities underwriter again 05/24 and was clear she did not want this ordered before than were discussed with her niece either, as she wanted to do that herself 05/24: agreed to risperdal 0.5mg bedtime- prefers to communicate this to her niece alone rather than securities underwriter Reason for continued inpatient stay Substantial Risk for: inability to function Time Spent With Patient Time: Total time managing care of this patient today ____ minutes.
--- NOTE | 2023-05-24 14:41 | PC.NURSE ---
Patient took all morning medication except 10mg of enalapril. The medication comes in 10mg pills and her order is for 20mg, but the meds were two different colors due to different packaging. Even after explaining this to Jessica, she refused to take the second half of the dosage due to the inconsistency in color with both pills. This nurse educated the patient on the effects of not taking the full dose of her BP medication and patient stated I understand, I'm still refusing to take it right now. I don't trust it so maybe tomorrow . Dr. Bedoya notified.
[2023-05-24 15:41] VITALS: BP 127/60
[2023-05-24 19:35] VITALS: BP 113/58; PULSE 68; RESP 18; TEMP 36.2; O2SAT 97
[2023-05-25 06:00] VITALS: BP 158/72; PULSE 73; RESP 18; TEMP 36.2; O2SAT 97
[2023-05-25] MEDS: Enalapril Maleate 10 MG TABLET 20 MG PO ×2 (09:51→21:04)
[2023-05-25] MEDS: hydroCHLOROthiazide 25 MG TABLET PO (09:51)
[2023-05-25] MEDS: Metoprolol Tartrate 25 MG TABLET PO ×3 (09:51→21:06)
--- NOTE | 2023-05-25 14:34 | MHC.CLN ---
NUTRITION CONSULT FOR REPORTED WEIGHT LOSS. PATIENT REPORTED TO CRISIS THAT HAS LOST 35# IN ABOUT 2 MONTHS. CURRENT INTAKE POOR. ENCOURAGE TO EAT IN DINING ROOM. HX HALLUCINATIONS X AT LEAST ONE YEAR. SUSPICIOUS AT HOME FOR FOOD BEING POISONED/THROWING IT OUT. REVIEW OF WEIGHT HISTORY SHOWS WEIGHT LOSS X 30 DAYS -4.6%. PRIOR WEIGHT RECORDED 06/14/21=61.915 KG SHOWS -12% WEIGHT LOSS X 2 YEARS. LIKES ICE CREAM. ADDING FORTIFIED ICE CREAM BID. PROVIDES 580 KCALS, 18 G PROTEIN. MONITOR WEEKLY FOR INTAKE AND WEIGHT.
--- NOTE | 2023-05-25 14:43 | HO.PSYCHPN ---
Subjective Subjective Date of Service: 05/25/23 Reason For Visit: Psychosis Subjective Notes: Conditional Voluntary Interim History: The nursing staff reported the patient had been alert oriented x4 in isolative and paranoid, suspicious and last night she refused her Risperdal at night and blood pressure medication. The staff reported the patient has complained of auditory hallucinations mostly whispers. On interview the patient denies new symptoms reports some auditory hallucinations, slight sedation. I suggested to take her Risperdal to target her psychotic symptoms. Today we decided to increase Risperdal up to 0.5 p.o. b.i.d. Mental Status Exam Mental Status Exam Patient Appearance: Appropriate Patient Orientation: Person, Place and Situation Level of Consciousness: Awake and Appropriate Patient Behavior: Guarded and Passive Mood Description: Withdrawn Affect Description: Constricted Patient Cognition Impaired: Yes Ability to Follow Directions: Good Speech Pattern: Clear Hallucinations: Auditory Delusions: Paranoid Ideation Thought Process: Distracted and Evasive Thought Content: positive for [place]yer, positive for Circumstantial and positive for Poverty of Content Judgement: Poor Diagnostics Vital Signs (24Hr): Vital Signs - 24 hr 05/24/23 15:41 05/24/23 19:35 05/25/23 06:00 Temperature 97.2 F 97.2 F Pulse Rate 68 73 Respiratory Rate 18 18 Blood Pressure 127/60 113/58 L 158/72 H Pulse Oximetry 97 97 Oxygen Delivery Method Room Air Room Air BMI result Body Mass Index 21.3 Labs 05/21/23 18:14 05/23/23 09:40 Imaging Radiology Impressions: ITS Impressions Head CT 05/21/23 20:22 IMPRESSION: No acute intracranial process seen. Medications Medications Current Medications Acetaminophen (Acetaminophen 325 Mg Tablet) 650 mg PO Q6H PRN PRN Reason: Headache/Pain Mild Scale (1-3) Al Hydroxide/Mg Hydroxide (Magnesium Hydrox/Alum Hydrox 30 Ml Oral.Susp) 30 ml PO Q6H PRN PRN Reason: Heartburn/Nausea Enalapril Maleate (Enalapril Maleate 10 Mg Tablet) 20 mg PO BID [facility]; Protocol Last Admin: 05/25/23 09:51 Dose: 20 mg Hydrochlorothiazide (Hydrochlorothiazide 25 Mg Tablet) 25 mg PO DAILY [facility]; Protocol Last Admin: 05/25/23 09:51 Dose: 25 mg Hydroxyzine HCl (Hydroxyzine Hcl 25 Mg Tablet) 25 mg PO Q6H PRN PRN Reason: Anxiety Magnesium Hydroxide (Milk Of Magnesia 30 Ml Oral.Susp) 30 ml PO DAILY PRN PRN Reason: Constipation Metoprolol Tartrate (Metoprolol Tartrate 25 Mg Tablet) 25 mg PO TID [facility]; Protocol Last Admin: 05/25/23 09:51 Dose: 25 mg Risperidone (Risperidone 0.5 Mg Tablet) 0.5 mg PO BID JM Trazodone HCl (Trazodone Hcl 50 Mg Tablet) 50 mg PO BEDTIME MRX1 PRN PRN Reason: Insomnia Allergies Allergies Allergy/AdvReac Type Severity Reaction Status Date / Time Penicillins Allergy Swelling Verified 05/21/23 16:51 Sulfa (Sulfonamide Allergy Swelling Verified 05/21/23 16:51 Antibiotics) Assessment & Plan Assessment & Plan (1) Psychosis: Status: Acute Code(s): F29 - Unspecified psychosis not due to a substance or known physiological condition Plan presents with well-established history of hallucinations for at least 1 year, that have become bothersome in recent weeks to months. Has not been on treatment. No obvious medical issues noted. Discussed risks and benefits of Risperdal and patient will consider same- will review with check writer salesperson again 05/24 and was clear she did not want this ordered before than were discussed with her niece either, as she wanted to do that herself 05/24: agreed to risperdal 0.5mg bedtime- prefers to communicate this to her niece alone rather than check writer salesperson. 05/25 Risperdal increased to 0.5 p.o. b.i.d. Reason for continued inpatient stay Substantial Risk for: inability to function, rapid decompensation and med/psych decompensation Time Spent With Patient Time: Total time managing care of this patient today __20__ minutes.
[2023-05-25 18:00] VITALS: BP 158/65; PULSE 62; RESP 17; TEMP 36.4; O2SAT 95
[2023-05-25] MEDS: risperiDONE 0.5 MG TABLET PO (21:07)
[2023-05-26 06:00] VITALS: BP 118/59; PULSE 71; RESP 18; TEMP 36.2; O2SAT 98
--- NOTE | 2023-05-26 14:01 | P.PNPSI_ITS ---
Subjective Subjective Date of Service: 05/26/23 Reason For Visit: Psychosis Subjective Notes: Conditional Voluntary Interim History: The nursing staff reported the patient has been isolative in her room, suspicion regarding his medication but compliant with it Risperdal p.o. b.i.d.. The staff reported that she has bad breath most likely due to infection that needed to be treated surgically. Historically she had an infection treated with antibiotics. The staff has made arrangements so she can have her meals on the activity room by herself. She feels embarrased and self aware of her bad breath. On interview the patient reports oversedation and his niece reported that she has slurred speech (I spoke wiht her over the phone), I offered Zyprexa instead of Risperdal. we are going to start doing cognitive testing this week. Mental Status Exam Mental Status Exam Patient Appearance: Well Grooomed and Appropriate Patient Orientation: Person and Situation Level of Consciousness: Awake and Appropriate Patient Behavior: Guarded and Passive Mood Description: Calm Affect Description: Constricted Patient Cognition Impaired: Yes Ability to Follow Directions: Good Speech Pattern: Clear Hallucinations: None Delusions: Paranoid Ideation Thought Process: Linear Thought Content: positive for Chemult and positive for Circumstantial Judgement: Fair Diagnostics Vital Signs (24Hr): Vital Signs - 24 hr 05/25/23 18:00 05/26/23 06:00 Temperature 97.6 F 97.1 F Pulse Rate 62 71 Respiratory Rate 17 18 Blood Pressure 158/65 H 118/59 L Pulse Oximetry 95 98 Oxygen Delivery Method Room Air Room Air BMI result Body Mass Index 21.3 Labs 05/21/23 18:14 05/23/23 09:40 Imaging Radiology Impressions: ITS Impressions Head CT 05/21/23 20:22 IMPRESSION: No acute intracranial process seen. Medications Medications Current Medications Acetaminophen (Acetaminophen 325 Mg Tablet) 650 mg PO Q6H PRN PRN Reason: Headache/Pain Mild Scale (1-3) Al Hydroxide/Mg Hydroxide (Magnesium Hydrox/Alum Hydrox 30 Ml Oral.Susp) 30 ml PO Q6H PRN PRN Reason: Heartburn/Nausea Enalapril Maleate (Enalapril Maleate 10 Mg Tablet) 20 mg PO BID [facility]; Protocol Last Admin: 05/26/23 12:21 Dose: Not Given Hydrochlorothiazide (Hydrochlorothiazide 25 Mg Tablet) 25 mg PO DAILY [facility]; Protocol Last Admin: 05/26/23 12:21 Dose: Not Given Hydroxyzine HCl (Hydroxyzine Hcl 25 Mg Tablet) 25 mg PO Q6H PRN PRN Reason: Anxiety Magnesium Hydroxide (Milk Of Magnesia 30 Ml Oral.Susp) 30 ml PO DAILY PRN PRN Reason: Constipation Metoprolol Tartrate (Metoprolol Tartrate 25 Mg Tablet) 25 mg PO TID [facility]; Protocol Last Admin: 05/26/23 12:21 Dose: Not Given Risperidone (Risperidone 0.5 Mg Tablet) 0.5 mg PO BID JM Last Admin: 05/26/23 12:21 Dose: Not Given Trazodone HCl (Trazodone Hcl 50 Mg Tablet) 50 mg PO BEDTIME MRX1 PRN PRN Reason: Insomnia Allergies Allergies Allergy/AdvReac Type Severity Reaction Status Date / Time Penicillins Allergy Swelling Verified 05/21/23 16:51 Sulfa (Sulfonamide Allergy Swelling Verified 05/21/23 16:51 Antibiotics) Assessment & Plan Assessment & Plan (1) Psychosis: Status: Acute Code(s): F29 - Unspecified psychosis not due to a substance or known physiological condition Plan presents with well-established history of hallucinations for at least 1 year, that have become bothersome in recent weeks to months. Has not been on treatment. No obvious medical issues noted. Discussed risks and benefits of Risperdal and patient will consider same- will review with chief underwriter again 05/24 and was clear she did not want this ordered before than were discussed with her niece either, as she wanted to do that herself 05/24: agreed to risperdal 0.5mg bedtime- prefers to communicate this to her niece alone rather than chief underwriter. 05/25 Risperdal increased to 0.5 p.o. b.i.d. 05/26 D/C Risperdal due to EPS, she wants to start Zyprexa tomorrow. Reason for continued inpatient stay Substantial Risk for: inability to function, rapid decompensation and med/psych decompensation Time Spent With Patient Time: Total time managing care of this patient today __20__ minutes.
--- NOTE | 2023-05-26 17:07 | PC.NURSE ---
Patient refused to leave room this shift. Did not eat breakfast, lunch or dinner. Her meals were set up in Sensory room for her comfort as she is self conscious of mouth odor due to infection. Patient also refused meds this am stating she couldn't take meds until she had eaten breakfast. Observed pacing in room from bed to door and back. Patient stated to staff that her doctor told her she didn't have to eat or take meds if she didn't want to. No c/o pain. Refused shower this am stating she could wash up in sink.
[2023-05-26 18:00] VITALS: BP 133/58; PULSE 76; RESP 18; TEMP 36.3; O2SAT 97
[2023-05-26] MEDS: Enalapril Maleate 10 MG TABLET 20 MG PO (20:07)
[2023-05-26] MEDS: Metoprolol Tartrate 25 MG TABLET PO (20:08)
[2023-05-27 06:00] VITALS: BP 138/62; PULSE 76; RESP 18; TEMP 36.6; O2SAT 98
--- NOTE | 2023-05-27 08:09 | P.PNPSI_ITS ---
Subjective Subjective Date of Service: 05/27/23 Reason For Visit: Psychosis Subjective Notes: Conditional Voluntary Interim History: The nursing staff reported the patient had stated most of the time in her room, paranoid but easily redirectable. Her appetite and p.o. intake is quite low, she refused meals yesterday. She self aware of the but although or of her mouth and we make arrangements so she can eat her meals in the sensory room. Yesterday spoke with her knees and we decided to discontinue Risperdal since she was having slurred speech and over-sedation. She did not want to start yesterday Zyprexa so we are going to start Zyprexa 1.25 today. The occupational therapist did an Eliazar test and a [place] test and she scored very low both. Today we had a meeting with her knees and explained the diagnosis so we are going to start on Aricept and change Risperdal to Zyprexa since she cannot tolerate Risperdal On interview the patient remains guarded and paranoid at times. Psychoeducation into her condition was provided and she agreed on the plan. Mental Status Exam Mental Status Exam Patient Appearance: Appropriate Patient Orientation: Person and Situation Level of Consciousness: Awake and Appropriate Patient Behavior: Guarded and Passive Mood Description: Calm Affect Description: Constricted Patient Cognition Impaired: Yes Ability to Follow Directions: Fair Speech Pattern: Clear Hallucinations: None Delusions: Paranoid Ideation Thought Process: Evasive and Slowed Thinking Thought Content: positive for Circumstantial Judgement: Fair Diagnostics Vital Signs (24Hr): Vital Signs - 24 hr 05/26/23 18:00 Temperature 97.4 F Pulse Rate 76 Respiratory Rate 18 Blood Pressure 133/58 L Pulse Oximetry 97 Oxygen Delivery Method Room Air BMI result Body Mass Index 21.3 Labs 05/21/23 18:14 05/23/23 09:40 Imaging Radiology Impressions: ITS Impressions Head CT 05/21/23 20:22 IMPRESSION: No acute intracranial process seen. Medications Medications Current Medications Acetaminophen (Acetaminophen 325 Mg Tablet) 650 mg PO Q6H PRN PRN Reason: Headache/Pain Mild Scale (1-3) Al Hydroxide/Mg Hydroxide (Magnesium Hydrox/Alum Hydrox 30 Ml Oral.Susp) 30 ml PO Q6H PRN PRN Reason: Heartburn/Nausea Enalapril Maleate (Enalapril Maleate 10 Mg Tablet) 20 mg PO BID [facility]; Protocol Last Admin: 05/26/23 20:07 Dose: 20 mg Hydrochlorothiazide (Hydrochlorothiazide 25 Mg Tablet) 25 mg PO DAILY [facility]; Protocol Last Admin: 05/26/23 12:21 Dose: Not Given Hydroxyzine HCl (Hydroxyzine Hcl 25 Mg Tablet) 25 mg PO Q6H PRN PRN Reason: Anxiety Magnesium Hydroxide (Milk Of Magnesia 30 Ml Oral.Susp) 30 ml PO DAILY PRN PRN Reason: Constipation Metoprolol Tartrate (Metoprolol Tartrate 25 Mg Tablet) 25 mg PO TID JM; Protocol Last Admin: 05/26/23 20:08 Dose: 25 mg Trazodone HCl (Trazodone Hcl 50 Mg Tablet) 50 mg PO BEDTIME MRX1 PRN PRN Reason: Insomnia Allergies Allergies Allergy/AdvReac Type Severity Reaction Status Date / Time Penicillins Allergy Swelling Verified 05/21/23 16:51 Sulfa (Sulfonamide Allergy Swelling Verified 05/21/23 16:51 Antibiotics) Assessment & Plan Assessment & Plan (1) Psychosis: Status: Acute Code(s): F29 - Unspecified psychosis not due to a substance or known physiological condition Plan presents with well-established history of hallucinations for at least 1 year, that have become bothersome in recent weeks to months. Has not been on treatment. No obvious medical issues noted. Discussed risks and benefits of Risperdal and patient will consider same- will review with selling underwriter again 05/24 and was clear she did not want this ordered before than were discussed with her niece either, as she wanted to do that herself 05/24: agreed to risperdal 0.5mg bedtime- prefers to communicate this to her niece alone rather than selling underwriter. 05/25 Risperdal increased to 0.5 p.o. b.i.d. 05/26 D/C Risperdal due to EPS, she wants to start Zyprexa tomorrow. 05/27 Zyprexa 1.25 p.o. q.h.s. for psychosis. Aricept 5 mg p.o. q.h.s. tonight Reason for continued inpatient stay Substantial Risk for: inability to function, rapid decompensation and med/psych decompensation Time Spent With Patient Time: Total time managing care of this patient today __20__ minutes.
[2023-05-27] MEDS: Enalapril Maleate 10 MG TABLET 20 MG PO ×2 (08:35→20:28)
[2023-05-27] MEDS: hydroCHLOROthiazide 25 MG TABLET PO (08:36)
[2023-05-27] MEDS: Metoprolol Tartrate 25 MG TABLET PO ×3 (08:36→20:27)
[2023-05-27 19:55] VITALS: BP 132/61; PULSE 62; RESP 16; TEMP 36.3; O2SAT 97
[2023-05-27] MEDS: OLANZapine 2.5 MG TABLET 1.25 MG PO (20:26)
[2023-05-27] MEDS: Donepezil HCl 5 MG TABLET 2.5 MG PO (20:27)
[2023-05-28 07:00] VITALS: BMI 19.9
[2023-05-28] MEDS: hydroCHLOROthiazide 25 MG TABLET PO (08:29)
[2023-05-28] MEDS: Enalapril Maleate 10 MG TABLET 20 MG PO ×2 (08:29→20:54)
[2023-05-28 08:30] VITALS: BP 154/68; PULSE 78; RESP 18; TEMP 36.6; O2SAT 99
[2023-05-28] MEDS: Metoprolol Tartrate 25 MG TABLET PO ×3 (08:30→20:55)
--- NOTE | 2023-05-28 15:08 | P.PNPSI_ITS ---
Subjective Subjective Date of Service: 05/28/23 Reason For Visit: Psychosis Subjective Notes: Conditional Voluntary Interim History: The patient is alert oriented x4, she is pleasant on approach. Yesterday after the family meeting, the patient was very paranoid and disrespect with his knees. Today in the morning she reported swollen on her lives most likely due to the tooth infection. We are going to discharge her tomorrow. Diagnostics Vital Signs (24Hr): Vital Signs - 24 hr 05/27/23 19:55 05/28/23 08:30 Temperature 97.4 F 97.8 F Pulse Rate 62 78 Respiratory Rate 16 18 Blood Pressure 132/61 154/68 H Pulse Oximetry 97 99 Oxygen Delivery Method Room Air Room Air BMI result Body Mass Index 19.9 Labs 05/21/23 18:14 05/23/23 09:40 Imaging Radiology Impressions: ITS Impressions Head CT 05/21/23 20:22 IMPRESSION: No acute intracranial process seen. Medications Medications Current Medications Acetaminophen (Acetaminophen 325 Mg Tablet) 650 mg PO Q6H PRN PRN Reason: Headache/Pain Mild Scale (1-3) Al Hydroxide/Mg Hydroxide (Magnesium Hydrox/Alum Hydrox 30 Ml Oral.Susp) 30 ml PO Q6H PRN PRN Reason: Heartburn/Nausea Donepezil HCl (Donepezil Hcl 5 Mg Tablet) 2.5 mg PO BEDTIME JM Last Admin: 05/27/23 20:27 Dose: 2.5 mg Enalapril Maleate (Enalapril Maleate 10 Mg Tablet) 20 mg PO BID JM; Protocol Last Admin: 05/28/23 08:29 Dose: 20 mg Hydrochlorothiazide (Hydrochlorothiazide 25 Mg Tablet) 25 mg PO DAILY [facility]; Protocol Last Admin: 05/28/23 08:29 Dose: 25 mg Hydroxyzine HCl (Hydroxyzine Hcl 25 Mg Tablet) 25 mg PO Q6H PRN PRN Reason: Anxiety Magnesium Hydroxide (Milk Of Magnesia 30 Ml Oral.Susp) 30 ml PO DAILY PRN PRN Reason: Constipation Metoprolol Tartrate (Metoprolol Tartrate 25 Mg Tablet) 25 mg PO TID JM; Protocol Last Admin: 05/28/23 15:03 Dose: 25 mg Olanzapine (Olanzapine 2.5 Mg Tablet) 1.25 mg PO BEDTIME JM Last Admin: 05/27/23 20:26 Dose: 1.25 mg Trazodone HCl (Trazodone Hcl 50 Mg Tablet) 50 mg PO BEDTIME MRX1 PRN PRN Reason: Insomnia Allergies Allergies Allergy/AdvReac Type Severity Reaction Status Date / Time Penicillins Allergy Swelling Verified 05/21/23 16:51 Sulfa (Sulfonamide Allergy Swelling Verified 05/21/23 16:51 Antibiotics) Assessment & Plan Assessment & Plan (1) Psychosis: Status: Acute Code(s): F29 - Unspecified psychosis not due to a substance or known physiological condition Plan presents with well-established history of hallucinations for at least 1 year, that have become bothersome in recent weeks to months. Has not been on treatment. No obvious medical issues noted. Discussed risks and benefits of Risperdal and patient will consider same- will review with telegraphic typewriter operator again 05/24 and was clear she did not want this ordered before than were discussed with her niece either, as she wanted to do that herself 05/24: agreed to risperdal 0.5mg bedtime- prefers to communicate this to her niece alone rather than telegraphic typewriter operator. 05/25 Risperdal increased to 0.5 p.o. b.i.d. 05/26 D/C Risperdal due to EPS, she wants to start Zyprexa tomorrow. 05/27 Zyprexa 1.25 p.o. q.h.s. for psychosis. Aricept 5 mg p.o. q.h.s. tonight Reason for continued inpatient stay Substantial Risk for: inability to function, rapid decompensation and med/psych decompensation Time Spent With Patient Time: Total time managing care of this patient today ____ minutes.
[2023-05-28 18:00] VITALS: BP 111/57; PULSE 61; RESP 18; TEMP 36.8; O2SAT 98
[2023-05-28] MEDS: OLANZapine 2.5 MG TABLET 1.25 MG PO (20:54)
[2023-05-28] MEDS: Donepezil HCl 5 MG TABLET 2.5 MG PO (20:54)
[2023-05-29 08:10] VITALS: BP 109/55; PULSE 68; RESP 18; TEMP 35.9; O2SAT 99
[2023-05-29] MEDS: hydroCHLOROthiazide 25 MG TABLET PO (08:31)
[2023-05-29] MEDS: Enalapril Maleate 10 MG TABLET 20 MG PO (08:31)
[2023-05-29] MEDS: Metoprolol Tartrate 25 MG TABLET PO (08:32)
--- NOTE | 2023-05-29 09:01 | P.DS_ITS ---
DS: Providers Provider Date of Service: 05/29/23 Date of admission: 05/22/23 14:11 Date of discharge: 05/29/23 Primary care physician: Unknown Physician Attending physician on discharge: Severo Rausch DS: Diagnosis Discharge Diagnosis (1) Psychosis: Status: Acute DS: Medications Discharge Medications Home Medications: Home Medications Medication Instructions Recorded Confirmed enalapril maleate 10 mg tablet 20 mg PO BID 08/27/20 05/21/23 hydrochlorothiazide 25 mg tablet 25 mg PO DAILY 08/27/20 05/21/23 metoprolol tartrate 25 mg tablet 25 mg PO TID 08/27/20 05/21/23 Mental Status Exam Mental Status Exam Patient Appearance: Appropriate Patient Orientation: Person, Place and Situation Level of Consciousness: Awake and Appropriate Patient Behavior: Guarded, Passive and Suspicious Mood Description: Calm Affect Description: Constricted Patient Cognition Impaired: Yes Ability to Follow Directions: Good Speech Pattern: Clear Hallucinations: None Delusions: Paranoid Ideation and Ideas of Reference Thought Process: Distracted and Evasive Thought Content: positive for [place] and positive for Circumstantial Judgement: Fair Data Data Completed and Pending Completed studies during hospitalization [Text1]: 05/23/23 09:40 Sodium 143 Potassium 3.3 D Chloride 104 Carbon Dioxide 25 Anion Gap 17 BUN 17 H Creatinine 0.75 Estim Creat Clear Calc 46.2 Estimated GFR > 60 Fasting Glucose 92 Calcium 9.7 Total Bilirubin 0.9 AST 22 ALT 13 Alkaline Phosphatase 81 Total Protein 7.5 Albumin 3.8 Triglycerides 128 Cholesterol 227 H LDL Cholesterol, Calc 142 H HDL Cholesterol 60 05/21/23 21:19 Urine clean catch - Urine colon top Urine Culture - Final Imaging Diagnostic Imaging Impressions Head CT 05/21/23 20:22 IMPRESSION: No acute intracranial process seen. DS: Summary Hospital Course Hospital Course: The patient is an 82-year-old female with no prior psychiatric history referred to the emergency room of another hospital since her knees reported the patient had been more paranoid with auditory hallucinations, paranoia and disorganized behavior.? She was medically cleared in the emergency room and transferring to this facility for psychiatric stabilization.? On admission the patient was very paranoid with some mild cognitive impairment.? Please see the HPI of the admission note for further details.? On admission the patient was started on a very low dose of Risperdal 0.5 p.o. q.h.s. to target psychosis and eventually we increase it up to 0.5 p.o. b.i.d. but unfortunately the patient developed EPS, start speech and over-sedation.? We discussed risks, benefits, side-effects and alternatives and we agreed to change to Zyprexa 1.225 p.o. q.h.s. to target her psychotic symptoms.? Also, the patient was cognitively assessed and she scored very low on the [place] 13/30 and her Eliazar test was 3.2.? We had a family meeting with her niece who is the primary support and ancillary services were arranged so she can be discharged back to her home.? The patient was able to tolerate Zyprexa and the addition of Aricept to target dementia.? Since there were no safety concerns discharge planning was discussed. Time spent discussing smoking cessation with patient: 3 to 10 minutes Status at Discharge Functional status at discharge: independent ambulation Overall status at discharge: patient is progressing back to baseline Time Spent with Patient Time attestation: Total time managing care of this patient today __30__ minutes. Time spent: Less than 30 minutes Discharge Plan Discharge Anticipated Discharge Date/Time: 05/29/23 11:00 Patient Disposition: Home, Self-Care Discharge Diagnosis: Dementia Psychosis NOS Referrals: Naa Lazo NP [Other] - 06/05/23 1:00 pm (Your first appointment in office with Naa Lazo is scheduled for 06/05/23 at 1PM. ) Manju Lin MD Primary Care [Other] - 06/10/23 1:30 pm Discharge Medications: New donepezil 5 mg Tablet 2.5 mg PO BEDTIME 30 Days Qty: 15 0RF olanzapine 2.5 mg Tablet 1.25 mg PO BEDTIME 30 Days Qty: 15 0RF Continued enalapril maleate 10 mg tablet 20 mg PO BID 30 Days Qty: 120 0RF hydrochlorothiazide 25 mg tablet 25 mg PO DAILY 30 Days Qty: 30 0RF metoprolol tartrate 25 mg tablet 25 mg PO TID 30 Days Qty: 90 0RF Discharge Orders: Discharge Order (Routine); Ordered 05/29/23 Ordered By: Severo Rausch Diet: Advance to usual diet Activity on Discharge: As tolerated Stand Alone Forms: Patient Portal Discharge page Care Plan Goals: Care plan goals achieved in this admission Health Concerns: Continue tx with PCP Plan of Treatment: Referred to medication management for psychiatry Assessment: Elderly female with no prior psychiatric history, with dementia and psychotic symptoms admitted for psychosis. We initially tried Risperdal with EPS so changed to Zyprexa. Also recently diagnosed with dementia and started on Aricept, no side effects, safe to be discharged to the community with ancillary services.
== END 2023-05-29 11:30 | disposition home or self-care (01) | DRG 885 ==
LOC: HO.ED 21:57 → HO.PGERI 05-22 14:16
PROVIDERS: Admitting Provider Psychiatry & Neurology Psychiatry; Emergency Provider Emergency Medicine; Visit Provider Psychiatry & Neurology Psychiatry
DX: F29 Unspecified psychosis not due to a substance or known physiological condition (principal); E78.5 Hyperlipidemia, unspecified; I49.5 Sick sinus syndrome; F03.90 Unspecified dementia, unspecified severity, without behavioral disturbance, psychotic disturbance, mood disturbance, and anxiety; I10 Essential (primary) hypertension; Z20.822 Contact with and (suspected) exposure to COVID-19; Z95.0 Presence of cardiac pacemaker; Z79.899 Other long term (current) drug therapy
CPT/HCPCS: 36415; 70450; 80053; 80061; 80143; 80179; 80307; 81001; 83735; 84443; 85025; 87086; 87635; 93005; 99285; S9485

== ENCOUNTER → 2023-05-22 14:11 | Outpatient (BNV) | payer MEDICARE, SELFPAY | PROVIDERS: Admitting Provider Psychiatry & Neurology Psychiatry; Emergency Provider Emergency Medicine; Visit Provider Psychiatry & Neurology Psychiatry | DX: F29 Unspecified psychosis not due to a substance or known physiological condition (principal) | CPT/HCPCS: 90792; 99231; 99232; 99238 ==

== ENCOUNTER 2023-10-01 14:08 | Outpatient (REF) | payer MEDICARE, SELFPAY ==
[2023-10-01 15:51] LABS: MANUAL DIFF FLAG NO
[2023-10-01 16:00] LABS: Basophils Percent Auto 0.1 % (0-2); Hematocrit 35.1 % (37.0-47.0); Hemoglobin 11.8 g/dl (12.0-16.0); Imm Gran Abs Auto 0.03 X10*3/uL (0.00-0.03); Imm Gran Pct Auto 0.4 % (0.0-0.4); Lymphocytes Absolute Auto 2.1 X10*3/uL (1.2-4.9); Lymphocytes Percent Auto 27.7 % (20-40); Mean Corpuscular HGB Conc 33.6 g/dl (31.0-35.0); Mean Corpuscular Hemoglobin 32.2 pg (27.0-33.0); Mean Corpuscular Volume 95.9 fL (80.0-98.0); Monocytes Absolute Auto 0.8 X10*3/uL (0.1-1.2); Monocytes Percent Auto 10.7 % (2-11); Neutrophils Absolute Auto 4.7 x10*3/uL (2.0-8.3); Neutrophils Percent Auto 61.1 % (45-73); Platelet Count 221 X10*3/uL (160-400); Red Blood Count 3.66 X10*6/uL (4.20-5.50); Red Cell Distribution Width 12.8 % (11.0-16.0); White Blood Count 7.7 X10*3/uL (4.8-10.8)
[2023-10-01 16:06] LABS: INTERNATIONAL NORM RATIO 0.9 (0.9-1.1); Prothrombin Time 11.2 SEC (11.1-13.3)
[2023-10-01 16:09] LABS: Anion Gap 13 (12-20); Blood Urea Nitrogen 31 mg/dL (9-16); Calcium 8.8 mg/dL (8.4-10.2); Carbon Dioxide 29 mmol/L (22-29); Chloride 104 mmol/L (96-108); Estimated Glomerular Filt Rate 58; Glucose Random 161 mg/dL (60-115); Potassium 4.5 mmol/L (3.3-5.1); Sodium 141 mmol/L (135-145)
== END 2023-10-01 14:09 | disposition home or self-care (01) ==
LOC: HO.HMGCLDS 14:08
PROVIDERS: Visit Provider Internal Medicine Cardiovascular Disease
DX: Z45.010 Encounter for checking and testing of cardiac pacemaker pulse generator [battery] (principal); Z79.01 Long term (current) use of anticoagulants
CPT/HCPCS: 36415; 80048; 85025; 85610

== ENCOUNTER 2024-02-23 13:50 | Outpatient (AMB) | payer MEDICARE, SELFPAY ==
--- NOTE | 2024-02-23 13:51 | A.OFFPC_ITS ---
Vital Signs 02/23/24 13:52 Height 5 ft 3.5 in Weight 115 lb BMI 20.0 BP 120/70 Blood Pressure Location Rt brachial Position Sitting Pulse 57 Pulse Source Pulse Oximeter Pulse Oximetry (%) 98 Oxygen Delivery Method Room Air Intake Visit Reasons: weight loss Intake Note: Pt is here today for a sick visit. Pt c/o weight loss. Pt states that she is eating and she has not lost her appetite but she is loosing weight. Pt states that she feel last month at home and she hit the back of her head and she cut her head open and was beeding for a little bit but she never went to the hospital. Allergies Penicillins Allergy (Verified 02/23/24 14:19) Swelling Sulfa (Sulfonamide Antibiotics) Allergy (Verified 02/23/24 14:19) Swelling Medication List - Last Reconciled 02/23/24 by Eleanor Lin MD enalapril maleate 20 mg (2 x 10 mg) PO BID 30 days hydrochlorothiazide 25 mg PO DAILY 30 days metoprolol tartrate 25 mg PO TID 30 days olanzapine 1.25 mg (1/2 x 2.5 mg) PO BEDTIME 30 days Tobacco use date assessed: 02/23/24 Fall risk assessment: 1 Fall in past year Last assessed Fall Risk: 02/23/24 Dental Screening Dental Screen Date: 02/23/24 Did you have a dental visit in the last 12 months?: Yes Did you have a dental problem in the last 6 months where you did not have access to dental care?: No Was dental information given to patient?: Patient has dentist HPI weight loss HPI Details Patient presents for the follow-up. She is concerned about losing weight because she can see her veins on the hands more clearly since she had a cataract surgery. Patient denies any change in appetite, nausea, vomiting abdominal pain change in bowel habits , hematochezia melena. Patient lives alone and her niece buys her grocery including frozen dinners. Patient does not cook but usually eats 3 meals a day. Hypertension has been well controlled on enalapril and hydrochlorothiazide patient follows up with a psychiatrist. She has been taking olanzapine q.h.s.. [facility] Medical History Paroxysmal atrial fibrillation Solar lentiginosis Dry skin Hyperlipidemia HTN (hypertension) Pacemaker Family History Father No problems noted. 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 1. Little interest or pleasure in doing things: not at all 2. Feeling down, depressed, or hopeless: not at all 3. Trouble falling or staying asleep, or sleeping too much: not at all 4. Feeling tired or having little energy: not at all 5. Poor appetite or overeating: not at all 6. Feeling bad about yourself - or that you are a failure or have let yourself or your family down: not at all 7. Trouble concentrating on things, such as reading the newspaper or watching television: not at all 8. Moving or speaking so slowly that other people could have noticed. Or the opposite - being so fidgety or restless that you have been moving around a lot more than usual: not at all 9. Thoughts that you would be better off or of hurting yourself in some way: not at all Total score: 0 Depression Screening Interpretation: Negative Depression Screening Done: Yes Source: Developed by Drs. Oscar Chen, Catrachita Villasenor, Nathanael Capellan and colleagues, with an educational radha from [employer]. Thrive Questionnaire Date Thrive assessed: 02/23/24 I am a: Patient What is your living situation today?: I have a steady place to live Within the past 12 months, did the food you bought not last and you didn't have the money to get more?: Never true Within the past 12 months, did you worry whether your food would run out before you got money to buy more?: Never true Do you have trouble paying for medicines?: No Do you have trouble getting transportation to medical appointments?: Yes Do you have trouble paying your heating and electricity bill?: No Do you have trouble taking care of your child, family member or friend?: No Do you have trouble with day-to-day activities such as bathing, preparing meals, shopping, managing finances, etc.?: No Are you currently unemployed and looking for a job?: No Are you interested in more education?: No Please select the resources that you would like help with: Transportation and None THRIVE Score: 1 AUDIT C Alcohol Use Questionnaire (AUDIT-C) 1. How often do you have a drink containing alcohol?: Never 3. How often do you have six or more drinks on one occasion?: Never Total Score: 0 ISHA-7 AMB Questionnaire ISHA-7 Date ISHA - 7 assessed: 02/23/24 Feeling nervous, anxious, or on edge: 0 = Not at all Not being able to stop or control worryin = Not at all Worrying too much about different things: 0 = Not at all Trouble relaxin = Not at all Being so restless that it is hard to sit still: 0 = Not at all Becoming easily annoyed or irritable: 0 = Not at all Feeling afraid as if something awful might happen: 0 = Not at all Total ISHA-7 score (0-4 normal; 5-9 mild; 10-14 moderate; 15-21 severe): 0 Source: Developed by Drs. Oscar Chen, Catrachita Villasenor, Nathanael Capellan and colleagues, with an educational radha from [employer]. Review of Systems Const All systems reviewed & are unremarkable except as noted in HPI and below Eyes Reports no additional complaints ENT Reports no additional complaints Card Reports no additional complaints Resp Reports no additional complaints GI Reports no additional complaints Reports no additional complaints Physical exam (Primary Care) Vital Signs: Last Vital Signs Pulse 57 02/23/24 13:52 Pulse Ox 98 02/23/24 13:52 Oxygen Delivery Method Room Air 02/23/24 13:52 BMI result Body Mass Index 20.0 Tobacco/Smoking Status: Tobacco use Status Tobacco use date assessed 02/23/24 02/23/24 14:25 Patient Tobacco Use Status Never used Tobacco 02/23/24 13:51 e-Cigarette/Vaping Use Never Used 02/23/24 13:51 PHQ-9: PHQ-9 Score PHQ-9: Total score 0 02/23/24 14:25 Depression Screening Interpretation: Negative Thrive Assessment: Date of Thrive Assessment Date Thrive assessed 02/23/24 02/23/24 14:25 Const General: no acute distress HENMT Head: Yes normal to inspection Face and sinus: Yes normal facial exam Neck Neck: Yes supple Resp Effort & Inspection: normal respiratory effort Auscultation: clear to auscultation bilaterally Cardio Rhythm: regular rhythm Heart sounds: S1 normal heart sound present and S2 normal heart sound present GI Inspection: Yes normal to inspection Palpation (GI): Soft to palpation Percussion: Yes normal to percussion Auscultation: normal bowel sounds Assessment and Plan Assessment & Plan (1) Paroxysmal atrial fibrillation: Comment: f/u Dr. Brody Naranjo, SSS, s/p pacemaker Code(s): I48.0 - Paroxysmal atrial fibrillation Plan: Follows up with regional sales engineer has been in normal sinus rhythm. (2) Psychosis: Code(s): F29 - Unspecified psychosis not due to a substance or known physiological condition Plan: Follows up with Psychiatry ,controlled on olanzapine (3) Hyperlipidemia: Code(s): E78.5 - Hyperlipidemia, unspecified (4) HTN (hypertension): Code(s): I10 - Essential (primary) hypertension Plan: Continue current medications patient will have fasting blood work (5) Vitamin B 12 deficiency: Code(s): E53.8 - Deficiency of other specified B group vitamins Plan: Check vitamin B12 level (6) Vitamin D deficiency: Code(s): E55.9 - Vitamin D deficiency, unspecified Plan: Check vitamin-D level (7) Weight loss: Code(s): R63.4 - Abnormal weight loss Plan: According to patient's records there has not been any significant weight change since May of 2023. Well-balanced diet discussed with the patient. She has been taking ensure supplement, follow-up in 2 months or as needed Orders: Orders Comprehensive Met. Panel Today E78.5 - Hyperlipidemia, unspecified, F29 - Unspecified psychosis not due to a substance or known physiological condition, I10 - Essential (primary) hypertension, I48.0 - Paroxysmal atrial fibrillation Complete Blood Count Auto Diff Today E78.5 - Hyperlipidemia, unspecified, F29 - Unspecified psychosis not due to a substance or known physiological condition, I10 - Essential (primary) hypertension, I48.0 - Paroxysmal atrial fibrillation TSH reflex Free T4 Today E78.5 - Hyperlipidemia, unspecified, F29 - Unspecified psychosis not due to a substance or known physiological condition, I10 - Essential (primary) hypertension, I48.0 - Paroxysmal atrial fibrillation Vitamin D 25-OH Total Today E78.5 - Hyperlipidemia, unspecified, F29 - Unspecified psychosis not due to a substance or known physiological condition, I10 - Essential (primary) hypertension, I48.0 - Paroxysmal atrial fibrillation Hemoglobin A1c Today E53.8 - Deficiency of other specified B group vitamins, E55.9 - Vitamin D deficiency, unspecified, E78.5 - Hyperlipidemia, unspecified, I10 - Essential (primary) hypertension Vitamin B12 and Folate Today E53.8 - Deficiency of other specified B group vitamins, E55.9 - Vitamin D deficiency, unspecified Coding Level of Care Code Est Pt Level 4 (55839) Diagnoses Paroxysmal atrial fibrillation I48.0 Psychosis F29 Hyperlipidemia E78.5 HTN (hypertension) I10 Vitamin B 12 deficiency E53.8 Vitamin D deficiency E55.9 Weight loss R63.4
[2024-02-23 13:52] VITALS: BP 120/70; PULSE 57; O2SAT 98
== END 2024-02-23 15:03 | disposition home or self-care (01) ==
LOC: HO.HMGC 13:50
PROVIDERS: PCP Internal Medicine; Visit Provider Internal Medicine
DX: I48.0 Paroxysmal atrial fibrillation (principal); F29 Unspecified psychosis not due to a substance or known physiological condition; E78.5 Hyperlipidemia, unspecified; I10 Essential (primary) hypertension; E53.8 Deficiency of other specified B group vitamins; E55.9 Vitamin D deficiency, unspecified; R63.4 Abnormal weight loss
CPT/HCPCS: 99214

== ENCOUNTER 2024-12-12 10:17 | Outpatient (REF) | payer MEDICARE, SELFPAY ==
[2024-12-12 13:15] LABS: MANUAL DIFF FLAG NO
[2024-12-12 13:24] LABS: Basophils Percent Auto 0.4 % (0-2); Eosinophils Absolute Auto 0.2 X10*3/uL (0.0-0.4); Hematocrit 32.9 % (37.0-47.0); Hemoglobin 11.2 g/dl (12.0-16.0); Imm Gran Abs Auto 0.04 X10*3/uL (0.00-0.03); Imm Gran Pct Auto 0.4 % (0.0-0.4); Lymphocytes Absolute Auto 2.2 X10*3/uL (1.2-4.9); Lymphocytes Percent Auto 19.9 % (20-40); Mean Platelet Volume 10.2 fL (9.4-12.3); Monocytes Absolute Auto 1.1 X10*3/uL (0.1-1.2); Monocytes Percent Auto 9.4 % (2-11); Neutrophils Absolute Auto 7.6 x10*3/uL (2.0-8.3); Neutrophils Percent Auto 67.9 % (45-73); Platelet Count 265 X10*3/uL (160-400); Red Cell Distribution Width 13.9 % (11.0-16.0); White Blood Count 11.2 X10*3/uL (4.8-10.8)
[2024-12-12 13:32] LABS: Estimated Average Glucose 103 mg/dL; Hemoglobin A1C 97.6933 umol/L; Hemoglobin A1c % 5.2 % (<6.0); Total Hemoglobin (HGBA1C) 2934.1133 umol/L
--- OUTSIDE RECORDS SUMMARY | 2024-12-12 13:44 | XMS_ITS | Clinical Summary ---
Author Organization [facility] ity Address [address] [place] [id number] Care Team Providers Care Quill Fixer Name Role Phone Efrain Arias MD Primary Care Provider Medical History Medical History Date Comments Anemia [...] Documents on File Type Date Recorded Patient Beam Worker Expl anation Health Care Decision (hx) 07/18/2013 AD REAL DIRECTIVE Health Care Decision (hx) 07/18/2013 AD REAL DIRECTIVE Health Care Decision (hx) 07/18/2013 AD REAL DIRECTIVE Health Care Decision (hx) 07/18/2013 AD REAL DIRECTIVE Care Teams Quill Fixer Relationship Specialty Start Date End Date Efrain Arias MD [address] [facility] [address] [place], [place] PCP - General Internal Medicine 08/29/20
[2024-12-12 14:09] LABS: Alanine Aminotransferase 25 U/L (0-31); Alkaline Phosphatase 102 U/L (39-117); Anion Gap 13 (12-20); Aspartate Amino Transferase 35 U/L (5-31); Bilirubin Total 0.6 mg/dL (0.0-1.0); Blood Urea Nitrogen 30 mg/dL (9-16); Calcium 9.2 mg/dL (8.4-10.2); Carbon Dioxide 26 mmol/L (22-29); Chloride 107 mmol/L (96-108); Estimated Glomerular Filt Rate > 60; Glucose Random 94 mg/dL (60-115); Potassium 4.3 mmol/L (3.3-5.1); Sodium 142 mmol/L (135-145); Total Protein 7.7 g/dL (6.5-8.0)
[2024-12-12 14:27] LABS: TSH reflex Free T4 1.52 uIU/mL (0.32-4.0); Vitamin D 25-OH Total 15.6 ng/mL (>30)
[2024-12-12 14:38] LABS: Folate 8.9 ng/mL (> or = 4.0); Vitamin B12 287 pg/mL (200-900)
== END 2024-12-12 10:18 | disposition home or self-care (01) ==
LOC: HO.HMGCLDS 10:17
PROVIDERS: PCP Internal Medicine; Visit Provider Internal Medicine
DX: E53.8 Deficiency of other specified B group vitamins (principal); E55.9 Vitamin D deficiency, unspecified; F29 Unspecified psychosis not due to a substance or known physiological condition; I48.0 Paroxysmal atrial fibrillation; I10 Essential (primary) hypertension; Z79.899 Other long term (current) drug therapy
CPT/HCPCS: 36415; 80053; 82306; 82607; 82746; 83036; 84443; 85025; 96127; 99212

== ENCOUNTER 2024-12-12 10:17 | Outpatient (AMB) | payer MEDICARE, SELFPAY ==
--- NOTE | 2024-12-12 10:29 | MHC.PC.OV ---
Vital Signs 12/12/24 10:32 Height 5 ft 3.5 in Weight 117 lb BMI 20.4 BP 136/70 Blood Pressure Location Lt brachial Position Sitting Respiration 18 Pulse 61 Pulse Source Pulse Oximeter Temp 98.6 F Temp Source Oral Pulse Oximetry (%) 99 Oxygen Delivery Method Room Air Intake Visit Reasons: Follow up Intake Note: Pt is here today for a follow up visit. Allergies Penicillins Allergy (Verified 12/12/24 10:33) Swelling Sulfa (Sulfonamide Antibiotics) Allergy (Verified 12/12/24 10:33) Swelling Medication List - Last Reconciled 12/12/24 by Eleanor Lin MD enalapril maleate 20 mg (2 x 10 mg) PO BID 30 days hydrochlorothiazide 25 mg PO DAILY 30 days metoprolol tartrate 25 mg PO TID 30 days olanzapine 1.25 mg (1/2 x 2.5 mg) PO BEDTIME 30 days Tobacco use date assessed: 12/12/24 Fall risk assessment: No Falls in past year Last assessed Fall Risk: 12/12/24 Dental Screening Dental Screen Date: 12/12/24 Did you have a dental visit in the last 12 months?: Yes Did you have a dental problem in the last 6 months where you did not have access to dental care?: No Was dental information given to patient?: Patient has dentist HPI Follow up HPI Details Patient presents for the follow-up on hypertension and history of psychosis controlled on low dose on olanzapine. Patient was prescribed medications by poem writer who decided not to continue to follow-up with the patient according to patient's niece who is her healthcare proxy. Patient is interested in finding a new psychiatrist. [facility] Medical History Paroxysmal atrial fibrillation Solar lentiginosis Dry skin Hyperlipidemia HTN (hypertension) Pacemaker Surgical History History of back surgery Family History Father No problems noted. 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 1. Little interest or pleasure in doing things: not at all 2. Feeling down, depressed, or hopeless: not at all 3. Trouble falling or staying asleep, or sleeping too much: not at all 4. Feeling tired or having little energy: not at all 5. Poor appetite or overeating: not at all 6. Feeling bad about yourself - or that you are a failure or have let yourself or your family down: not at all 7. Trouble concentrating on things, such as reading the newspaper or watching television: not at all 8. Moving or speaking so slowly that other people could have noticed. Or the opposite - being so fidgety or restless that you have been moving around a lot more than usual: not at all 9. Thoughts that you would be better off or of hurting yourself in some way: not at all Total score: 0 Depression Screening Interpretation: Negative Depression Screening Done: Yes 42987 - PHQ-9 Billing: Yes Source: Developed by Drs. Oscar Chen, Catrachita Villasenor, Nathanael Capellan and colleagues, with an educational radha from [employer]. Thrive Questionnaire Date Thrive assessed: 12/12/24 I am a: Patient What is your living situation today?: I have a steady place to live Within the past 12 months, did the food you bought not last and you didn't have the money to get more?: Never true Within the past 12 months, did you worry whether your food would run out before you got money to buy more?: Never true Do you have trouble paying for medicines?: No Do you have trouble getting transportation to medical appointments?: No Do you have trouble paying your heating and electricity bill?: I choose not to answer this question Do you have trouble taking care of your child, family member or friend?: I choose not to answer this question Do you have trouble with day-to-day activities such as bathing, preparing meals, shopping, managing finances, etc.?: I choose not to answer this question Are you currently unemployed and looking for a job?: I choose not to answer this question Are you interested in more education?: I choose not to answer this question Please select the resources that you would like help with: None Currently or been in a relationship where the following occur: No concerns reported THRIVE Score: 0 AUDIT C Alcohol Use Questionnaire (AUDIT-C) 1. How often do you have a drink containing alcohol?: Never 3. How often do you have six or more drinks on one occasion?: Never Total Score: 0 ISHA-7 AMB Questionnaire ISHA-7 Date ISHA - 7 assessed: 12/12/24 Feeling nervous, anxious, or on edge: 0 = Not at all Not being able to stop or control worryin = Not at all Worrying too much about different things: 0 = Not at all Trouble relaxin = Not at all Being so restless that it is hard to sit still: 0 = Not at all Becoming easily annoyed or irritable: 0 = Not at all Feeling afraid as if something awful might happen: 0 = Not at all Total ISHA-7 score (0-4 normal; 5-9 mild; 10-14 moderate; 15-21 severe): 0 Source: Developed by Drs. Oscar Chen, Catrachita Villasenor, Nathanael Capellan and colleagues, with an educational radha from [employer]. ISHA-7 Assessment Billing ISHA-7 Assessment Tool: ISHA-7 Assessment 59160 Review of Systems Const All systems reviewed & are unremarkable except as noted in HPI and below Eyes Reports no additional complaints ENT Reports no additional complaints Card Reports no additional complaints Resp Reports no additional complaints GI Reports no additional complaints Reports no additional complaints Physical exam (Primary Care) Vital Signs: Last Vital Signs Temp 98.6 F 12/12/24 10:32 Pulse 61 12/12/24 10:32 Resp 18 12/12/24 10:32 BP 136/70 12/12/24 10:32 Pulse Ox 99 12/12/24 10:32 Oxygen Delivery Method Room Air 12/12/24 10:32 BMI result Body Mass Index 20.4 Tobacco/Smoking Status: Tobacco use Status Tobacco use date assessed 12/12/24 12/12/24 10:34 Patient Tobacco Use Status Never used Tobacco 12/12/24 10:34 e-Cigarette/Vaping Use Never Used 12/12/24 10:29 PHQ-9: PHQ-9 Score PHQ-9: Total score 0 12/12/24 11:12 Depression Screening Interpretation: Negative Thrive Assessment: Date of Thrive Assessment Date Thrive assessed 12/12/24 12/12/24 10:34 Currently or been in a relationship where the following occur: No concerns reported Const General: no acute distress HENMT Ears: hearing grossly normal bilaterally Neck Neck: Yes supple Resp Effort & Inspection: normal respiratory effort Auscultation: clear to auscultation bilaterally Cardio Rhythm: regular rhythm Heart sounds: S1 normal heart sound present and S2 normal heart sound present GI Inspection: Yes normal to inspection Palpation (GI): Soft to palpation Percussion: Yes normal to percussion Auscultation: normal bowel sounds Coding Level of Care Code Est Pt Level 4 (21319) Diagnoses Vitamin B 12 deficiency E53.8 Vitamin D deficiency E55.9 Psychosis F29 Paroxysmal atrial fibrillation I48.0 HTN (hypertension) I10 Additional Codes ISHA-7 Assessment Billing - ISHA-7 Assessment Tool: ISHA-7 Assessment 77078 ([id number]) PHQ-9 - 69744 - PHQ-9 Billing: Yes ([id number]) Assessment & Plan Assessment & Plan (1) Vitamin B 12 deficiency: Code(s): E53.8 - Deficiency of other specified B group vitamins Category: Medical Plan: Continue vitamin B12 check the level (2) Vitamin D deficiency: Code(s): E55.9 - Vitamin D deficiency, unspecified Category: Medical Plan: Continue vitamin-D (3) Psychosis: Comment: Established with Psychiatry. Psychotic episode in May 2023 Code(s): F29 - Unspecified psychosis not due to a substance or known physiological condition Category: Medical Plan: Patient will get established with new Psychiatry (4) Paroxysmal atrial fibrillation: Comment: f/u Dr. Brody Naranjo, HX SSS, s/p pacemaker, not anticoagulated due to risk of falls Code(s): I48.0 - Paroxysmal atrial fibrillation Category: Medical Plan: On metoprolol not anticoagulated due to increase risk of falls (5) HTN (hypertension): Code(s): I10 - Essential (primary) hypertension Category: Medical Plan: Continue current medication check blood work today, follow-up in 3 months Orders: Orders Comprehensive Doon. Panel Fast Today E53.8 - Deficiency of other specified B group vitamins, E55.9 - Vitamin D deficiency, unspecified, F29 - Unspecified psychosis not due to a substance or known physiological condition, I10 - Essential (primary) hypertension, I48.0 - Paroxysmal atrial fibrillation Vitamin B12 and Folate Today E53.8 - Deficiency of other specified B group vitamins, E55.9 - Vitamin D deficiency, unspecified, F29 - Unspecified psychosis not due to a substance or known physiological condition, I10 - Essential (primary) hypertension, I48.0 - Paroxysmal atrial fibrillation Vitamin D 25-OH Total Today E53.8 - Deficiency of other specified B group vitamins, E55.9 - Vitamin D deficiency, unspecified, F29 - Unspecified psychosis not due to a substance or known physiological condition, I10 - Essential (primary) hypertension, I48.0 - Paroxysmal atrial fibrillation Comprehensive Met. Panel Today E53.8 - Deficiency of other specified B group vitamins, E55.9 - Vitamin D deficiency, unspecified, F29 - Unspecified psychosis not due to a substance or known physiological condition, I10 - Essential (primary) hypertension, I48.0 - Paroxysmal atrial fibrillation Complete Blood Count Auto Diff Today E53.8 - Deficiency of other specified B group vitamins, E55.9 - Vitamin D deficiency, unspecified, F29 - Unspecified psychosis not due to a substance or known physiological condition, I10 - Essential (primary) hypertension, I48.0 - Paroxysmal atrial fibrillation TSH reflex Free T4 Today E53.8 - Deficiency of other specified B group vitamins, E55.9 - Vitamin D deficiency, unspecified, F29 - Unspecified psychosis not due to a substance or known physiological condition, I10 - Essential (primary) hypertension, I48.0 - Paroxysmal atrial fibrillation Hemoglobin A1c Today E53.8 - Deficiency of other specified B group vitamins, E55.9 - Vitamin D deficiency, unspecified, F29 - Unspecified psychosis not due to a substance or known physiological condition, I10 - Essential (primary) hypertension, I48.0 - Paroxysmal atrial fibrillation [facility]errals [facility] Referral F29 - Unspecified psychosis not due to a substance or known physiological condition, I10 - Essential (primary) hypertension, I48.0 - Paroxysmal atrial fibrillation Medications: New enalapril maleate 20 mg PO BID 180 tabs 0RF Changed From hydrochlorothiazide 25 mg PO DAILY 30 days 30 tabs 0RF To hydrochlorothiazide 25 mg PO DAILY 90 tabs 0RF From metoprolol tartrate 25 mg PO TID 30 days 90 tabs 0RF To metoprolol tartrate 25 mg PO BID 180 tabs 0RF Discontinued enalapril maleate Discontinued Reason: Doctor's Order 20 mg (2 x 10 mg) PO BID 30 days 120 tabs 0RF
[2024-12-12 10:32] VITALS: BP 136/70; PULSE 61; RESP 18; TEMP 37; O2SAT 99; BMI 20.4
--- OUTSIDE RECORDS SUMMARY | 2024-12-12 11:35 | XMS_ITS | Clinical Summary ---
Author Organization [facility] ity Address [address] [place] [id number] Care Team Providers Care Cash Grain Farmer Name Role Phone Efrain Arias MD Primary Care Provider [phone] Medical History Medical History Date Comments Anemia DX:Anemia Social History Tobacco Use Types Packs/Day Years Used Date Smoking Tobacco: Never Assessed Comments Unknown Sex and Gender Information Value Date Recorded Sex Assigned at Not on file Legal Sex Female 7:15 PM EST Gender Identity Not on file Sexual Orientation Not on file Obstetrics History Last Filed Vital Signs Vital Sign Reading Time Taken Comments Blood Pressure 150/80 07/28/2023 1:47 PM EST Pulse 65 07/28/2023 1:47 PM EST Temperature - - Respiratory Rate - - Oxygen Saturation - - Inhaled Oxygen Concentration - - Weight 52.6 kg (116 lb) 07/28/2023 1:47 PM EST Height 160 cm (5' 3 ) 07/28/2023 1:47 PM EST Body Mass Index 20.55 07/28/2023 1:47 PM EST Plan of Treatment Health Maintenance Due Date Last Done Comments DTaP,Tdap,and Td Vaccines (1 - Tdap) 1959 Pneumococcal Vaccine: 50+ Ye ars (1 of 1 - PCV) 1988 Zoster Vaccines (1 of 2) 1988 RSV Immunization Adult Patie nts (1 - 1-dose 75+ series) 2013 Cholesterol Screening (Lipid Panel) 07/12/2022 Depression Screening 07/12/2022 Falls Risk Assessment 07/12/2022 Osteoporosis Screening (Bone Density Screening) 07/12/2022 Social Influencers of Health Screening 07/12/2022 Hypertension/CHF/CAD Annual BMP Blood Test 09/25/2023 COVID-19 Vaccine ( - 2023-2 5 season) 2024 Influenza Vaccine (Season Ended) 2025 HIB Vaccines Aged Out No longer eligi ble based on patient's age to complete this topic HPV Vaccines Aged Out No longer eligi ble based on patient's age to complete this topic Hepatitis A Vaccines Aged Out No long er eligible based on patient's age to complete this topic Hepatitis B Vaccines Aged Out No long er eligible based on patient's age to complete this topic IPV Vaccines Aged Out No longer eligi ble based on patient's age to complete this topic MMR Vaccines Aged Out No longer eligi ble based on patient's age to complete this topic Meningococcal ACWY Vaccine Aged Out N o longer eligible based on patient's age to complete this topic Meningococcal B Vaccine Aged Out No l onger eligible based on patient's age to complete this topic RSV Immunization Patients Un rigoberto 20 months Aged Out No longer eligible b ased on patient's age to complete this topic Varicella Vaccines Aged Out No longer eligible based on patient's age to complete this topic Advance Directives Documents on File Type Date Recorded Patient Marketing Analytics Manager Expl anation Health Care Decision (hx) 07/18/2013 AD REAL DIRECTIVE Health Care Decision (hx) 07/18/2013 AD REAL DIRECTIVE Health Care Decision (hx) 07/18/2013 AD REAL DIRECTIVE Health Care Decision (hx) 07/18/2013 AD REAL DIRECTIVE Care Teams Cash Grain Farmer Relationship Specialty Start Date End Date Efrain Arias MD [address] [facility] [address] [place], [place] PCP - General Internal Medicine 08/29/20
== END 2024-12-12 12:42 | disposition home or self-care (01) ==
LOC: HO.HMCC 10:18
PROVIDERS: PCP Internal Medicine; Visit Provider Internal Medicine
DX: E53.8 Deficiency of other specified B group vitamins (principal); E55.9 Vitamin D deficiency, unspecified; F29 Unspecified psychosis not due to a substance or known physiological condition; I48.0 Paroxysmal atrial fibrillation; I10 Essential (primary) hypertension

== ENCOUNTER 2025-04-20 13:12 | Outpatient (AMB) | payer MEDICARE, SELFPAY ==
--- NOTE | 2025-04-20 13:26 | A.OFFPC_ITS ---
Vital Signs 04/20/25 13:27 Height 5 ft 3.5 in Weight 107 lb BMI 18.7 BP 104/66 Blood Pressure Location Rt brachial Position Sitting Respiration 16 Pulse 72 Pulse Source Pulse Oximeter Temp 98.2 F Temp Source Oral Pulse Oximetry (%) 98 Oxygen Delivery Method Room Air Intake Visit Reasons: HDF/Rehab Follow up ok per dr barragan Intake Note: Pt is here today for a HDF/Rehab follow up visit. Allergies fish derived (fish) Allergy (Verified 04/20/25 13:31) Rash Penicillins Allergy (Verified 04/20/25 13:31) Swelling Sulfa (Sulfonamide Antibiotics) Allergy (Verified 04/20/25 13:31) Swelling Medication List - Last Reconciled 04/20/25 by Eleanor Barragan MD enalapril maleate 20 mg PO .qd hydrochlorothiazide 25 mg PO DAILY metoprolol tartrate 25 mg PO BEDTIME olanzapine 2.5 mg PO .AM Tobacco use date assessed: 04/20/25 Fall risk assessment: 2 + Falls in past year Last assessed Fall Risk: 04/20/25 Dental Screening Dental Screen Date: 12/12/24 HPI HDF/Rehab Follow up ok per dr barragan HPI Details Pt presents for f/u SNF inpatient 03/29- 04/17 for difficulty ambulating. Pt lives alone and has grocery delivered. Pt has VNA service and will be starting home PT. Pt is ambulating with walker. [facility] Medical History Paroxysmal atrial fibrillation Solar lentiginosis Dry skin Hyperlipidemia HTN (hypertension) Pacemaker Surgical History History of back surgery Family History Father No problems noted. 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 Housing: Apartment Do you presently have visiting nurse or other home services: No Patient Tobacco Use Status: Never used Tobacco e-Cigarette/Vaping Use: Never Used service: No Current occupational status: retired Sexual orientation: Straight/Heterosexual Cognitive needs: No Hearing needs: No Vision needs: Yes Questionnaire Thrive Questionnaire Date Thrive assessed: 12/12/24 I am a: Patient What is your living situation today?: I have a steady place to live Within the past 12 months, did the food you bought not last and you didn't have the money to get more?: Never true Within the past 12 months, did you worry whether your food would run out before you got money to buy more?: Never true Do you have trouble paying for medicines?: No Do you have trouble getting transportation to medical appointments?: No Do you have trouble paying your heating and electricity bill?: I choose not to a nswer this question Do you have trouble taking care of your child, family member or friend?: I choose not to answer this question Do you have trouble with day-to-day activities such as bathing, preparing meals, shopping, managing finances, etc.?: I choose not to answer this question Are you currently unemployed and looking for a job?: I choose not to answer this question Are you interested in more education?: I choose not to answer this question Please select the resources that you would like help with: None Currently or been in a relationship where the following occur: No concerns reported THRIVE Score: 0 ISHA-7 AMB Questionnaire ISHA-7 Date ISHA - 7 assessed: 12/12/24 Source: Developed by Drs. Oscar Chen, Catrachita Villasenor, Nathanael Capellan and colleagues, with an educational radha from [employer]. Review of Systems Const All systems reviewed & are unremarkable except as noted in HPI and below Eyes Reports no additional complaints ENT Reports no additional complaints Card Reports no additional complaints Resp Reports no additional complaints GI Reports no additional complaints Reports no additional complaints Physical exam (Primary Care) Vital Signs: Last Vital Signs Temp 98.2 F 04/20/25 13:27 Pulse 72 04/20/25 13:27 Resp 16 04/20/25 13:27 BP 104/66 04/20/25 13:27 Pulse Ox 98 04/20/25 13:27 Oxygen Delivery Method Room Air 04/20/25 13:27 BMI result Body Mass Index 18.7 Tobacco/Smoking Status: Tobacco use Status Tobacco use date assessed 04/20/25 04/20/25 13:38 Patient Tobacco Use Status Never used Tobacco 04/20/25 13:30 e-Cigarette/Vaping Use Never Used 04/20/25 13:30 Thrive Assessment: Date of Thrive Assessment Date Thrive assessed 12/12/24 04/20/25 13:30 Currently or been in a relationship where the following occur: No concerns reported Const General: no acute distress HENMT Head: Yes normal to inspection Face and sinus: Yes normal facial exam Eyes General: appearance normal, both eyes and all related structures Neck Neck: Yes supple Resp Effort & Inspection: normal respiratory effort Auscultation: clear to auscultation bilaterally Cardio Rhythm: regular rhythm Heart sounds: S1 normal heart sound present and S2 normal heart sound present GI Inspection: Yes normal to inspection Palpation (GI): Soft to palpation Percussion: Yes normal to percussion Auscultation: normal bowel sounds Coding Level of Care Code TCM Mod MDM <= 7 Days Diagnoses HTN (hypertension) I10 Psychosis F29 Vitamin D deficiency E55.9 Difficulty in walking R26.2 Assessment & Plan Assessment & Plan (1) HTN (hypertension): Code(s): I10 - Essential (primary) hypertension Category: Medical Plan: Continue current medications (2) Psychosis: Comment: Established with Psychiatry. Psychotic episode in May 2023 Code(s): F29 - Unspecified psychosis not due to a substance or known physiological condition Category: Medical Plan: Controlled on On olanzapine follow-up with psychiatry (3) Vitamin D deficiency: Code(s): E55.9 - Vitamin D deficiency, unspecified Category: Medical Plan: Continue vitamin-D supplement (4) Difficulty in walking: Code(s): R26.2 - Difficulty in walking, not elsewhere classified Category: Medical Plan Continue physical therapy Orders: Orders Comprehensive Met. Panel 04/20/25 Eleanor Barragan MD E53.8 - Deficiency of other specified B group vitamins, E55.9 - Vitamin D deficiency, unspecified, F29 - Unspecified psychosis not due to a substance or known physiological condition, I10 - Essential (primary) hypertension TSH reflex Free T4 04/20/25 Eleanor Barragan MD E53.8 - Deficiency of other specified B group vitamins, E55.9 - Vitamin D deficiency, unspecified, F29 - Unspecified psychosis not due to a substance or known physiological condition, I10 - Essential (primary) hypertension Vitamin D 25-OH Total 04/20/25 Eleanor Barragan MD E53.8 - Deficiency of other specified B group vitamins, E55.9 - Vitamin D deficiency, unspecified, F29 - Unspecified psychosis not due to a substance or known physiological condition, I10 - Essential (primary) hypertension Vitamin B12 and Folate 04/20/25 Eleanor Barragan MD E53.8 - Deficiency of other specified B group vitamins, E55.9 - Vitamin D deficiency, unspecified, F29 - Unspecified psychosis not due to a substance or known physiological condition, I10 - Essential (primary) hypertension Complete Blood Count Auto Diff 04/20/25 Eleanor Barragan MD E53.8 - Deficiency of other specified B group vitamins, E55.9 - Vitamin D deficiency, unspecified, F29 - Unspecified psychosis not due to a substance or known physiological condition, I10 - Essential (primary) hypertension Medications: Changed From metoprolol tartrate 25 mg PO BID 180 tabs 0RF To metoprolol tartrate 25 mg PO BEDTIME Eleanor Barragan MD From enalapril maleate 20 mg PO BID 180 tabs 0RF To enalapril maleate 20 mg PO .qd 90 tabs 1RF Eleanor Barragan MD From olanzapine 1.25 mg (1/2 x 2.5 mg) PO BEDTIME 30 days 15 tabs 0RF To olanzapine 2.5 mg PO .AM Severo Rausch MD
[2025-04-20 13:27] VITALS: BP 104/66; PULSE 72; RESP 16; TEMP 36.8; O2SAT 98; BMI 18.7
--- OUTSIDE RECORDS SUMMARY | 2025-04-20 17:14 | XMS_ITS | Encounter Summary ---
Author Organization [facility] Address [address] [facility] [address] [place] [address] Phone Care Team Providers Care Hog Worker Name Role Phone Eleanor Lin MD Primary Care Provider [phone] Encounter Details Date Type Department Care Team (Late st Contact Info) Description 09/23/2022 Ancillary Orders [facility] [address] [facility] 3rd Floor, [address] [place] [address] Karlo Benitez MD [address] [place] [address] [email or web address] Social History Tobacco Use Types Packs/Day Years Used Date Smoking Tobacco: Never Smokeless Tobacco: Never Alcohol Use Standard Drinks/Week Comments Never 0 (1 standard drink = 0.6 oz pur e alcohol) Comments Unknown Sex and Gender Information Value Date Recorded Sex Assigned at Not on file Legal Sex Female 10:13 PM EDT Gender Identity Not on file Sexual Orientation Not on file documented as of this encounter Plan of Treatment Not on file documented as of this encounter Visit Diagnoses Not on filedocumented in this encounter Care Teams Hog Worker Relationship Specialty Start Date End Date Eleanor Lin MD [address] [place] [address] PCP - General Internal Medicine 06/22/20 documented as of this encounter Additional Source Comments The information contained in this document represents components of the legal health record. It is not the complete legal health record.[facility]
--- OUTSIDE RECORDS SUMMARY | 2025-04-20 17:14 | XMS_ITS ---
Author Organization [facility] Care Team Providers Care Corrugated Fastener Driver Name Role Phone Nancy Pfeiffer Unavailable Unavailable Rosalia Hernandez Unavailable Unavailable Allergies and adverse reactions Code CodeSystem Substance Reaction Severity StartDate Concern Status 607950571 SNOMED CT Sulfa Antibiotics Moderate active 716562847 SNOMED CT Statins Moderate 03/29/2025 active red dye Moderate 03/29/2025 active 7984 RXNORM Penicillin Moderate 03/29/[address] Latex Severe 03/29/[address] Fish derived product Moderate 2024 active Care Team Name Role Address Phone Organization Dates Nancy Pfeiffer PCP [address] [facility] [address], [place], [address], [place] (Office): : [facility] 03/29/2025 - 04/17/2025 [place], [address], [place]Office[place] [facility] 03/29/2025 - 04/17/2025 Goals Section Goals Description Status Target Date Jessica resident will be free of s/sx of hypotension through the review date. Active 07/10/2025 Jessica will be able to commu nicate basic needs on a daily basis through the review date. Active 07/10/2025 Jessica will be free of falls through the review date. Active 07/10/2025 Jessica will have no s/sx of complications r/t fluid deficit through the review date. Active 07/10/2025 Jessica will have no s/sx of complications relate to fluid overload through the review date. Active 07/10/2025 Jessica will improve current level of function in self-care ADLs through the review date. Jessica will be able to reach goals set by therapy. Active 07/10/2025 Jessica will increase level o f mobility by participating with therapy on goals through the next review date. Active 025 Jessica will maintain or deve lop clean and intact skin by the review date. Active 07/10/2025 Jessica will not have an inte rruption in normal activities due to pain through the review date. Active 07/10/2025 Jessica will remain free of c omplications related to hypotension through review date. Active 07/10/2025 Jessica will remain free of c omplications related to immobility, including contractures, thrombus formation, skin-breakdown, fall related injury through the next review date. Active Jessica will verbalize adequa te relief of pain through the review date. Active 07/10/2025 Jessica wishes to return home with services in place by the next review date. Active 07/10/2025 Jessica's and HCP Advanced Di rectives will be honored through next review Active 07/10/2025 The resident will express sa tisfaction with type of activities and level of activity involvement when asked through the review date. Active 07/10/2025 The resident will have gradu al weight gain/loss to within 10% of IBW for sex and height 126# range by review date. Active 08/2024 Functional Status Code Name Recorded Time Value Entered By Chair/vrc-ff-nxhvj transfer 04/16/2025 Independent srodriguez1 Eating 04/17/2025 Independent mfrancis1 Indicate the type of wheelchair or scooter used 04/16/2025 Not assessed [email or web address] Lower body dressing 04/17/2025 Independent mfrancis 1 Lying to sitting on side of bed 04/17/2025 Independent mfrancis1 Oral hygiene 04/17/2025 Setup or clean-up assistance mfrancis1 Personal hygiene 04/17/2025 Substantial/maximal assi stance mfrancis1 Putting on/taking off footwear 04/16/2025 Independent kestelan Roll left and right 04/16/2025 Independent srodrigu ez1 Shower/bathe self 04/17/2025 Not assessed [email or web address] Sit to lying 04/17/2025 Independent mfrancis1 Sit to stand 04/16/2025 Setup or clean-up assistance [email or web address] Toilet transfer 04/16/2025 Independent kestelan Toileting hygiene 04/16/2025 Supervision or touching assistance kestelan Upper body dressing 04/16/2025 Independent kestelan Walk 10 feet 04/16/2025 Independent kestelan Walk 150 feet 04/16/2025 Not assessed kestelan Wheel 150 feet 04/16/2025 Not assessed [email or web address] Wheel 50 feet with two turns 04/14/2025 Partial/mode rate assistance demian Immunizations Immunization Status Vaccine Details Vaccine Code CodeSystem Date Notes Influenza-High Dose(Fluzone) cancelled created date: 04/04/2025 consent date: 03/30/2025 Educated by on 04/04/2025 PVC20 cancelled Pneumococcal conjugate vaccine 20-valent (PCV20), polysaccharide [id number] conjugate, adjuvant, preservative free 216 CVX created date: 04/04/2025 consent date: 03/30/2025 Educated by on 04/04/2025 [facility] cancelled SARS-COV-2 (COVID-19) vaccine, mRNA, spike protein, LNP, preservative free, uche-sucrose, 30 mcg/0.3 mL dose 309 CVX created date: 04/04/2025 consent date: 03/30/2025 Educated by on 04/04/2025 Medications Section Medication Name Status Code CodeSystem Dose Route Frequency Admin Type Sig Text Start Date End Date OLANZapine Oral Tablet 2.5 MG active 979784 RXNORM 1 tablet Oral one time a day Routine Give 1 tablet by mouth one time a day for Zander ia 2024 - hydroCHLOROth iazide Oral Tablet 12.5 MG active 780094 RXNORM 1 tablet Oral one time a day Routine Give 1 tablet by mouth one time a day for BP 2024 - Lisinopril Oral Tablet 2.5 MG active 818738 RXNORM 1 tablet Oral one time a day Routine Give 1 tablet by mouth one time a day for BP 2024 - Aspirin EC Oral Tablet Delayed Release 81 MG active 138716 RXNORM 1 tablet Oral one time a day Routine Give 1 tablet by mouth one time a day for Afib 2024 - Metoprolol Tartrate Oral Tablet 25 MG aborted 559388 RXNORM 12.5 mg Oral two times a day Routine Give 12.5 mg by mouth two times a day for BP 04/11 Fleet Enema Enema 7-19 GM/118ML active 136104 RXNORM 1 dose Rectal as needed PRN Insert 1 dose rectal ly as needed for Consti pation (Step 3) as needed if no bowel moveme nt for 8 hours after bisaco dyl suppos itory. 2024 - Milk of Magnesia Suspension 400 MG/5ML active 497634 RXNORM 30 ml Oral as needed PRN Give 30 ml by mouth as needed for Consti pation (Step 1) As needed if no bowel moveme nt for three days. (Do not use for Hemodi alysis patien ts). 2024 - Acetaminophen Tablet 325 MG active 408099 RXNORM 2 tablet Oral as needed PRN Give 2 tablet by mouth every 6 hours as needed for Pain Pain Total dosage for acetam inophe n and medica tions that contai n acetam inophe n should not exceed 3 grams / 24 hours. AND Give 2 tablet by mouth every 6 hours as needed for Fever greate r than 100.0F Total dosage for acetam inophe n and medica tions that contai n acetam inophe n should not exceed 3 grams / 24 hours. 2024 - 988397 RXNORM 2 tablet Oral as needed PRN Give 2 tablet by mouth every 6 hours as needed for Pain Pain Total dosage for acetam inophe n and medica tions that contai n acetam inophe n should not exceed 3 grams / 24 hours. AND Give 2 tablet by mouth every 6 hours as needed for Fever greate r than 100.0F Total dosage for acetam inophe n and medica tions that contai n acetam inophe n should not exceed 3 grams / 24 hours. 2024 - Bisacodyl Suppository 10 MG active 591356 RXNORM 1 suppos itory Rectal as needed PRN Insert 1 suppos itory rectal ly as needed for If no bowel moveme nt for 8 hours after Milk of Magnes ia 2024 - Metoprolol Tartrate Oral Tablet 25 MG active 690232 RXNORM 12.5 mg Oral two times a day Routine Give 12.5 mg by mouth two times a day for BP Hold for pulse less than 60 BPM 2024 - Loperamide HCl Oral Tablet 2 MG active 665560 RXNORM 2 mg Oral as needed PRN Give 2 mg by mouth every 8 hours as needed for Diarrh ea 2024 - Mental Status Section Date Assessment Total Score Description 04/04/2025 BIMS 13 cognitively int act CAM 0 No delirium ind icated PHQ-9 01 minimal depress ion 04/04/2025 BIMS 13 cognitively int act CAM 0 No delirium ind icated PHQ-9 01 minimal depress ion Problems Problem # Description Date of onset Resolved Date Code CodeSystem Concern Status 1 ATRIOVENTRICULAR BLOCK, COMPLETE 03/29/[address] active 2 COGNITIVE COMMUNICATION DEFICIT 03/29/[address] active 3 DELUSIONAL DISORDERS 03/29/[address] active 4 DYSPHAGIA, OROPHARYNGEAL PHASE 03/29/[address] active 5 ESSENTIAL (PRIMARY) HYPERTENSION 03/29/20 25 03/29/[address] completed 6 HYPERLIPIDEMIA, UNSPECIFIED 03/29/[address] active 7 HYPERTENSIVE CHRONIC KIDNEY DISEASE WITH STAGE 1 THROUGH STAGE 4 CHRONIC KIDNEY DISEASE, OR UNSPECIFIED CHRONIC KIDNEY DISEASE 03/29/[address] active 8 HYPOTENSION, UNSPECIFIED 03/29/[address] active 9 MUSCLE WEAKNESS (GENERALIZED) 03/29/[address] active 10 OTHER ABNORMALITIES OF GAIT AND MOBILITY 03/29/[address] active 11 PRESENCE OF CARDIAC PACEMAKER 03/29/[address] active 12 UNSPECIFIED ATRIAL FIBRILLATION 03/29/[address] active 13 UNSPECIFIED LACK OF COORDINATION 03/29/[address] active 14 UNSTEADINESS ON FEET 03/29/[address] active 15 WEAKNESS 03/29/[address] active Reason for Referral No Reasons for Referral Entered Social History Social History Observation Description Start Date End Date Code Code System Current Smoking Status Tobacco smoking consumption unknown 270637597 SNOMED CT Sex Assigned At Female 1940 32617-4 [facility] Gender Identity Vital Signs Code Code System Vitals Name Values and Units Timing Information 82725-4 [facility] Pain Level Value=0.0 04/17/2025 8867-4 [facility] Heart rate Value=56.0 Units=/min 03/2025 8462-4 [facility] Blood Pressure-Diastolic Value=78 Un its=mmHg 04/17/2025 8480-6 [facility] Blood Pressure-Systolic Gshmp=871 Un its=mmHg 04/17/2025 9279-1 [facility] Respiratory Rate Value=18.0 Units=/m in 04/16/2025 8310-5 [facility] Body Temperature Value=97.1 Units= F 04/16/2025 92370-1 [facility] O2 % dC Oximetry Value=98.0 Units= % 04/16/2025 53239-3 [facility] Weight Tsgoy=939.0 Units=Lbs 8302-2 [facility] Height Value=65.0 Units=Inches 03/29/2025
--- OUTSIDE RECORDS SUMMARY | 2025-04-20 17:14 | XMS_ITS | Encounter Summary ---
Author Organization [facility] Address [address] [address] Phone Care Team Providers Care Engineer Operations And Maintenance Name Role Phone Eleanor Lin MD Primary Care Provider [phone] Encounter Details Date Type Department Care Team (Late st Contact Info) Description 09/23/2022 Procedure Pass Non-Invasive Cardiology [address] [place] [address] Social History Tobacco Use Types Packs/Day Years [...] on filedocumented in this encounter Care Teams Engineer Operations And Maintenance Relationship Specialty Start Date End Date Eleanor Lin MD [facility] [place] [address] PCP - General Internal Medicine 06/22/20 documented as of this encounter Additional Source Comments The information contained in this document represents components of the legal health record. It is not the complete legal health record.[facility]
--- OUTSIDE RECORDS SUMMARY | 2025-04-20 17:14 | XMS_ITS | Encounter Summary ---
Author Organization [facility] Address [address] [facility] [address] [place] [address] Phone Care Team Providers Care Road Grader Operator Name Role Phone Eleanor Lin MD Primary Care Provider [phone] Encounter Details Date Type Department Care Team (Late st Contact Info) Description 04/16/2021 Ancillary Orders [facility] [address] [facility] 3rd Floor, [address] [place], [place] [id number] Diego Tracy MD [address] [place] [phone] [email or web address] Social History Tobacco Use Types Packs/Day Years [...] on filedocumented in this encounter Care Teams Road Grader Operator Relationship Specialty Start Date End Date Eleanor Lin MD [address] [place] [address] PCP - General Internal Medicine 06/22/20 documented as of this encounter Additional Source Comments The information contained in this document represents components of the legal health record. It is not the complete legal health record.[facility]
--- OUTSIDE RECORDS SUMMARY | 2025-04-20 17:14 | XMS_ITS | Encounter Summary ---
Author Organization [facility] Address [address] [place] [address] Phone Care Team Providers Care Barber Shop Manager Name Role Phone Eleanor Lin MD Primary Care Provider [phone] Encounter Details Date Type Department Care Team (Late st Contact Info) Description 09/23/2022 Ancillary Orders Non-Invasive Cardiology [address] [place], [place] [id number] Karlo Benitez MD [address] [place], [place] [phone] [email or web address] Complete heart block Social History Tobacco Use Types Packs/Day Years [...] on file documented as of this encounter Results * DEVICE CHECK: PPM IN-HOME INTERROGATION (12/04/2022 11:39 AM EDT) Narrative Matthew Vega DO - 12/04/2022 3:54 PM EDT Reason for appointment: Remote pacemaker interrogation HPI: Routine 3 month remote pacemaker interrogation. No device related complaints. Indication for device: CHB. Examination: Device type: Pacemaker Development Coach: [employer] Mode: DDDR LRL/UPL: 50/120 bpm Mode switches: 3 for AF burden of <1%. Longest episode 25 min High V rates: 0 Thresholds, impedances, and sensing stable. AF/AT: Patient is currently taking 81mg ASA daily. Atrial pacin% Ventricular pacin% Battery: 8.5 months Additional comments: Device functioning appropriately. Normal device function. Patient to follow-up for continued monitoring every 1 month. Jessica has an older home monitor for which she needs to manually send her downloads. She is instructed to send her next report on 12/29. Report prepared by Annita Rubio RN us Karlo Benitez MD [facility] ORDERABL ES Final Result documented in this encounter Visit Diagnoses Diagnosis Complete heart block Atrioventricular block, complete Complete heart block Atrioventricular block, complete documented in this encounter Care Teams Barber Shop Manager Relationship Specialty Start Date End Date Eleanor Lin MD [address] [place] [address] PCP - General Internal Medicine 06/22/20 documented as of this encounter Additional Source Comments The information contained in this document represents components of the legal health record. It is not the complete legal health record.[facility]
--- OUTSIDE RECORDS SUMMARY | 2025-04-20 17:14 | XMS_ITS | Encounter Summary ---
Author Organization [facility] Address [address] [place] [address] Phone Care Team Providers Care Aircraft Steel Fabricator Name Role Phone Eleanor Lin MD Primary Care Provider [phone] Encounter Details Date Type Department Care Team (Late st Contact Info) Description 04/16/2021 Ancillary Orders Non-Invasive Cardiology [address] [place] [address] Diego Tracy MD [address] [place] [phone] [email or web address] Complete heart block Social History Tobacco Use [...] Results * DEVICE CHECK: PPM IN-HOME INTERROGATION (04/16/2021 2:09 PM EDT) Narrative Diego Tracy MD - 04/21/2021 2:55 PM EDT Reason for appointment: Remote pacemaker interrogation HPI: Routine 3 month remote pacemaker interrogation. No device related complaints. Indication for device: CHB. Examination: Device type: Pacemaker Laboratory Tech: [employer] Mode: DDDR LRL/UPL: 50/120 bpm Mode switches: 139, for AF burden of 62% High V rates: 0 Thresholds, impedances, and sensing stable. AF/AT: Patient is currently taking 81mg ASA daily. Atrial pacin% Ventricular pacin% Battery: 4.9 yrs Additional comments: Device functioning appropriately. AF near continuous since December, see telephone encounter of 01/15/21 Normal device function. Patient to follow-up for continued monitoring every 3 months. Report prepared by Annita Rubio RN us Diego Tracy MD CV CARDIAC SERVICES ORDER LIZETTE Final Result documented in this encounter Visit Diagnoses Diagnosis Complete heart block Atrioventricular block, complete Complete heart block Atrioventricular block, complete documented in this encounter Care Teams Aircraft Steel Fabricator Relationship Specialty Start Date End Date Eleanor Lin MD [facility] [place] [address] PCP - General Internal Medicine 06/22/20 documented as of this encounter Additional Source Comments The information contained in this document represents components of the legal health record. It is not the complete legal health record.[facility]
--- OUTSIDE RECORDS SUMMARY | 2025-04-20 17:14 | XMS_ITS | Encounter Summary ---
Author Organization [facility] Address [address] [place] [address] Phone Care Team Providers Care Air Conditioning Equipment Mechanic Name Role Phone Eleanor Lin MD Primary Care Provider [phone] Encounter Details Date Type Department Care Team (Late st Contact Info) Description 03/21/2025 Orders Only [facility] [address] [facility] 3rd Floor, [address] [place], [place] [phone] Provider, MD [facility] [place] [address] Social History Tobacco Use Types Packs/Day Years Used Date Smoking Tobacco: Never Smokeless Tobacco: Never Alcohol Use Standard Drinks/Week Comments Never 0 (1 standard drink = 0.6 oz pur e alcohol) Education Answer Date Recorded Are you interested in more education? Not on drew e 12/04/2022 Are you concerned about learning? Not on file 12/04/2022 No 12/04/2022 No 12/04/2022 Digital Access Answer Date Recorded No 12/31/2022 No 12/31/2022 Reliable internet access at home? Not on file 12/31/2022 Device with a working camera? Not on file Comments Unknown Sex and Gender Information Value Date Recorded Sex Assigned at Not on file Legal Sex Female 10:13 PM EDT Gender Identity Not on file Sexual Orientation Not on file documented as of this encounter Plan of Treatment Not on file documented as of this encounter Procedures Procedure Name Priority Date/Time Associated Diagnosis Comments OUTSIDE EP STUDY Routine 02/16/2025 9:32 AM EDT documented in this encounter Results * Outside EP Study Report Only (02/16/2025 9:32 AM EDT) us Historical Provider CV ELECTROPHYSIOLOGY [facility] Final Result documented in this encounter Visit Diagnoses Not on filedocumented in this encounter Care Teams Air Conditioning Equipment Mechanic Relationship Specialty Start Date End Date Eleanor Lin MD [address] [place] [address] PCP - General Internal Medicine 06/22/20 documented as of this encounter Additional Source Comments The information contained in this document represents components of the legal health record. It is not the complete legal health record.[facility]
--- OUTSIDE RECORDS SUMMARY | 2025-04-20 17:14 | XMS_ITS | Encounter Summary ---
Author Organization [facility] Address [address] [address] Phone Care Team Providers Care Business Applications Specialist Name Role Phone Eleanor Lin MD Primary Care Provider [phone] Encounter Details Date Type Department Care Team (Late st Contact Info) Description 04/16/2021 Procedure Pass Non-Invasive Cardiology [address] [place] [address] Social History Tobacco Use Types Packs/Day Years [...] on filedocumented in this encounter Care Teams Business Applications Specialist Relationship Specialty Start Date End Date Eleanor Lin MD [facility] [place] [address] PCP - General Internal Medicine 06/22/20 documented as of this encounter Additional Source Comments The information contained in this document represents components of the legal health record. It is not the complete legal health record.[facility]
--- OUTSIDE RECORDS SUMMARY | 2025-04-20 17:15 | XMS_ITS | Clinical Summary ---
Author Organization [facility] Address [address] [place] [address] Phone Care Team Providers Care Cleaner Housekeeping Name Role Phone Eleanor Lin MD Primary Care Provider [phone] Allergies Active Allergy Reactions Criticality Noted Date Comments Penicillins 10/08/2020 Sulfa (Sulfonamide Antibiotics) 08/2020 Medications aspirin 81 MG EC tablet Take 81 mg by mouth daily. prn Active enalapril (VASOTEC) 10 MG tabletIndications :Essential hypertension Take 2 tablets (20 mg total) by mouth 2 (two) times a day. 360 tablet 3 4 Active metoprolol tartrate (LOPRESSOR) 25 MG tabletIndications :Essential hypertension Take 1 tablet (25 mg total) by mouth 3 (three) times a day. 270 tablet 3 4 Active Active Problems Problem Noted Date Diagnosed Date Mixed hyperlipidemia 10/08/2020 Essential hypertension 10/08/2020 Assessment & Plan (07/18/2022 1:38 PM EST): Complete heart block 10/08/2020 Assessment & Plan (07/18/2022 1:40 PM EST): She is status post dual-chamber [place] pacemaker. She has normal lead parameters, see device diagnostics above. We will continue her on metoprolol 25 mg 3 times daily for rate control. Status post placement of cardiac pacemaker 10/08 Encounters Date Type Department Care Team Description 03/21/2025 Orders Only [facility] [address], [address] [place] [address] Provider, MD Lani 02/15/2025 Refill [facility] [address], [address] [place] [address] Matthew Vega, DO Medication Refill from Last 3 Months Social History Tobacco Use Types Packs/Day Years Used Date Smoking Tobacco: Never Smokeless Tobacco: Never Tobacco Cessation:Counseling Given: Not Answered Alcohol Use Standard Drinks/Week Comments Never 0 [...] on file Sexual Orientation Not on file Last Filed Vital Signs Vital Sign Reading Time Taken Comments Blood Pressure 128/78 04/22/2023 11:16 AM EDT Pulse 55 04/22/2023 11:16 AM EDT Temperature - - Respiratory Rate - - Oxygen Saturation 99% 04/22/2023 11:16 AM EDT Inhaled Oxygen Concentration - - Weight 63 kg (139 lb) 07/18/2022 12:49 PM EST Height 160 cm (5' 2.99 ) 04/22/2023 11:16 AM EDT Body Mass Index 24.63 07/18/2022 12:49 PM EST Plan of Treatment Health Maintenance Due Date Last Done Comments Adult Td,Tdap Booster 1938 CREATININE LEVEL 1938 POTASSIUM LEVEL 1938 DEPRESSION SCREENING 1950 PNEUMOCOCCAL VACCINES (50+ y ears) (1 of 1 - PCV) 1988 ZOSTER VACCINES (1 of 2) 1988 OSTEOPOROSIS SCREENING INITI AL (ONE-TIME) 12/08/2003 RSV VACCINE (1 - 1-dose 75+ series) 2013 INFLUENZA VACCINE (#1) 2025 COVID-19 VACCINE (2023-2 5 season) 2025 HEPATITIS A VACCINES Aged Out No long er eligible based on patient's age to complete this topic HIB VACCINES Aged Out No longer eligi ble based on patient's age to complete this topic MENINGOCOCCAL VACCINES (ACWY) Aged Out No longer eligible based on patient's age to complete this topic MENINGOCOCCAL VACCINES (B) Aged Out N o longer eligible based on patient's age to complete this topic Medical Devices Not on file Procedures Procedure Name Priority Date/Time Associated Diagnosis Comments OUTSIDE EP STUDY Routine 02/16/2025 9:32 AM EDT from Last 3 Months Results * Outside EP Study Report Only (02/16/2025 9:32 AM EDT) [facility] Provider MD ALONDRA HICKEY Final Result from Last 3 Months Insurance [employer] [place] [place] [id number] Care Teams Cleaner Housekeeping Relationship Specialty Start Date End Date Eleanor Lin MD [facility] [place] [address] PCP - General Internal Medicine 06/22/20 Additional Source Comments The information contained in this document represents components of the legal health record. It is not the complete legal health record.[facility]
--- OUTSIDE RECORDS SUMMARY | 2025-04-20 17:15 | XMS_ITS | Encounter Summary ---
Author Organization [facility] Address [address] [address] Phone Care Team Providers Care Title Examiner Name Role Phone Eleanor Lin MD Primary Care Provider [phone] Encounter Details Date Type Department Care Team (Late st Contact Info) Description 07/23/2021 Procedure Pass Non-Invasive [facility]iology [address] [place] [address] Social History Tobacco Use Types Packs/Day Years [...] on filedocumented in this encounter Care Teams Title Examiner Relationship Specialty Start Date End Date Eleanor Lin MD [facility] [place] [address] PCP - General Internal Medicine 06/22/20 documented as of this encounter Additional Source Comments The information contained in this document represents components of the legal health record. It is not the complete legal health record.[facility]
--- OUTSIDE RECORDS SUMMARY | 2025-04-20 17:15 | XMS_ITS | Encounter Summary ---
Author Organization [facility] Address [address] [place] [address] Phone Care Team Providers Care Swim Instructor Name Role Phone Eleanor Lin MD Primary Care Provider [phone] Reason for Visit * Reason Comments Medication Refill Encounter Details Date Type Department Care Team (Late st Contact Info) Description 02/15/2025 Refill [facility] [address], [address] [place], [place] [id number] Matthew Vega, [address] [facility] [address] [place] [id number] [email or web address] Medication Refill Social History Tobacco Use Types Packs/Day Years [...] documented as of this encounter Visit Diagnoses Diagnosis Essential hypertension Unspecified essential hypertension documented in this encounter Care Teams Swim Instructor Relationship Specialty Start Date End Date Eleanor Lin MD [address] [place] [address] PCP - General Internal Medicine 06/22/20 documented as of this encounter Additional Source Comments The information contained in this document represents components of the legal health record. It is not the complete legal health record.[facility]
--- OUTSIDE RECORDS SUMMARY | 2025-04-20 17:15 | XMS_ITS | Encounter Summary ---
Author Organization [facility] Address [address] [place] [phone] Phone Care Team Providers Care Electronic Systems Technician Name Role Phone Eleanor Lin MD Primary Care Provider [phone] Encounter Details Date Type Department Care Team (Late st Contact Info) Description 03/30/2023 Procedure Pass Non-Invasive Cardiology [address] [place] [id number] Social History Tobacco Use Types Packs/Day Years [...] on filedocumented in this encounter Care Teams Electronic Systems Technician Relationship Specialty Start Date End Date Eleanor Lin MD [address] [place] [address] PCP - General Internal Medicine 06/22/20 documented as of this encounter Additional Source Comments The information contained in this document represents components of the legal health record. It is not the complete legal health record.[facility]
--- OUTSIDE RECORDS SUMMARY | 2025-04-20 17:15 | XMS_ITS | Encounter Summary ---
Author Organization [facility] Address [address] [address] Phone Care Team Providers Care Environmental Services Director Name Role Phone Eleanor Lin MD Primary Care Provider [phone] Encounter Details Date Type Department Care Team (Late st Contact Info) Description 03/28/2021 Procedure Pass Non-Invasive Cardiology [address] [place] [address] Social History Tobacco Use Types Packs/Day Years [...] on filedocumented in this encounter Care Teams Environmental Services Director Relationship Specialty Start Date End Date Eleanor Lin MD [facility] [place] [address] PCP - General Internal Medicine 06/22/20 documented as of this encounter Additional Source Comments The information contained in this document represents components of the legal health record. It is not the complete legal health record.[facility]
== END 2025-04-20 16:53 | disposition home or self-care (01) ==
LOC: HO.HMCC 13:13
PROVIDERS: PCP Internal Medicine; Visit Provider Internal Medicine
DX: I10 Essential (primary) hypertension (principal); F29 Unspecified psychosis not due to a substance or known physiological condition; E55.9 Vitamin D deficiency, unspecified; R26.2 Difficulty in walking, not elsewhere classified

== ENCOUNTER → 2025-04-20 13:12 | Outpatient (BNVA) | payer MEDICARE, SELFPAY | PROVIDERS: PCP Internal Medicine; Visit Provider Internal Medicine | DX: I10 Essential (primary) hypertension (principal); F29 Unspecified psychosis not due to a substance or known physiological condition; E55.9 Vitamin D deficiency, unspecified; R26.2 Difficulty in walking, not elsewhere classified; Z79.899 Other long term (current) drug therapy | CPT/HCPCS: 99212 ==